=== PATIENT | male | born 1955 | race Caucasian/White ===

== ENCOUNTER 2020-07-30 11:21 | Outpatient (REF) | payer MEDICARE, OTHER, SELFPAY ==
[2020-07-30 13:37] LABS: Prostate Specific Antigen 0.78 ng/mL (<0.05-4.0)
== END 2020-07-30 11:22 | disposition home or self-care (01) ==
LOC: HO.LAB 11:21
PROVIDERS: Visit Provider Urology
DX: Z12.5 Encounter for screening for malignant neoplasm of prostate (principal); N40.1 Benign prostatic hyperplasia with lower urinary tract symptoms; N13.8 Other obstructive and reflux uropathy
CPT/HCPCS: 36415; 84153

== ENCOUNTER → 2020-08-06 13:43 | Outpatient (BNVA) | payer MEDICARE, OTHER, SELFPAY | PROVIDERS: PCP Nurse Practitioner Family; Visit Provider Urology | DX: C61 Malignant neoplasm of prostate (principal); N40.1 Benign prostatic hyperplasia with lower urinary tract symptoms; Z88.4 Allergy status to anesthetic agent; Z88.5 Allergy status to narcotic agent | CPT/HCPCS: 99212 ==

== ENCOUNTER 2020-12-28 | Outpatient (REF) | payer MEDICARE, OTHER, SELFPAY ==
[2020-12-28 13:10] LABS: Appearance Urine CLEAR; Color Urine YELLOW; Glucose Urine UA NEG (NEG); Leukocyte Esterase Urine 2+ (NEG); Nitrite Urine NEG (NEG); Specific Gravity - Urine 1.015 (1.005-1.025); Urine Blood NEG (NEG); Urine Ketones NEG (NEG); Urine Protein NEG (NEG-TRACE)
[2020-12-28 14:11] LABS: WBC Urine 50-75 /HPF (0-4)
[2020-12-28 14:12] LABS: Amorphous Sediment Urine 2+ /LPF; RBC Urine 0 /HPF (0); Squamous Epithelial Cell Urine 1+ /LPF
[2020-12-28 14:13] LABS: Renal Epithelial Cells Urine 1+ /LPF
[2020-12-28 14:15] LABS: Bacteria Urine 1+ /LPF; Mucus Urine 1+ /LPF
== END 2020-12-28 00:01 | disposition home or self-care (01) ==
LOC: HO.LNP
PROVIDERS: Visit Provider Urology
DX: N40.1 Benign prostatic hyperplasia with lower urinary tract symptoms (principal); N13.8 Other obstructive and reflux uropathy
CPT/HCPCS: 81001; 87086; 87088; 87186

== ENCOUNTER 2021-01-28 14:55 | Outpatient (REF) | payer MEDICARE, OTHER, SELFPAY ==
[2021-01-28 15:37] LABS: Blood Urea Nitrogen 9 mg/dL (9-16); Estimated Glomerular Filt Rate > 60
[2021-01-28 16:00] LABS: Prostate Specific Antigen 0.62 ng/mL (<0.05-4.0)
== END 2021-01-28 14:56 | disposition home or self-care (01) ==
LOC: HO.LAB 14:55
PROVIDERS: PCP Nurse Practitioner Family; Visit Provider Urology
DX: C61 Malignant neoplasm of prostate (principal)
CPT/HCPCS: 36415; 82565; 84153; 84520

== ENCOUNTER 2021-01-29 13:38 | Emergency (ER) | payer MEDICARE, OTHER, SELFPAY ==
--- NOTE | ~2021-01-29 | XR_ITS ---
EXAMINATION: XR SHOULDER, LEFT CLINICAL INFORMATION: Left shoulder numbness and pain COMPARISON: June 25, 2020 TECHNIQUE: Three views of the left shoulder. FINDINGS: There is no evidence of acute fracture or dislocation of the left shoulder. Calcific tendinitis is present. There appears to be some superior subluxation of the humeral head at the glenohumeral joint which is suggestive of rotator cuff injury. There is mild spurring of the acromioclavicular joint. No widening of the coracoclavicular space is seen. There is mild spurring at the glenohumeral joint. Status post previous thoracic spine instrumentation. XR/XR shoulder LT min 2V IMPRESSION: Calcific tendinitis of the left shoulder without evidence of acute fracture or dislocation. Secondary signs to suggest rotator cuff tear.
--- NOTE | ~2021-01-29 | CT_ITS ---
EXAMINATION: CT CERVICAL SPINE WITHOUT CONTRAST CLINICAL INFORMATION: Neck pain. No trauma. COMPARISON: 12/03/2016 TECHNIQUE: Contiguous helical images of the cervical spine were obtained without IV contrast. Multiplanar reconstructions were performed. This CT examination was performed using dose optimization techniques as appropriate, variously including the following: *Automated exposure control *Adjustment of mA and/or kV according to patient size (this includes techniques or standardized protocols for targeted exams where dose is matched to indication/reason for exam; i.e. extremities or head) *Use of iterative reconstruction technique DLP: 495 mGy-cm FINDINGS: Anterior fusion hardware in place at C4-C5 and C5-C6 with solid bony fusion of these vertebral bodies. There is anatomic alignment of the vertebral bodies and posterior elements. The atlantoaxial and atlantooccipital articulations are intact. There is disc space narrowing at the remaining levels with vacuum disc phenomenon and endplate osteophytes. Facet arthropathy throughout the cervical spine. Remaining vertebral body heights are maintained and the cervical spine. There is mild anterior wedging appearance of the T2 vertebral body. No evidence of acute fracture. No prevertebral soft tissue swelling. Limited evaluation of the cervical levels on CT. That said, there is clearly significant bony neuroforaminal narrowing on the right at C3-C4. Bilateral C4-C5 and C5-C6 significant bony neuroforaminal narrowing. Mild bony neuroforaminal narrowing at C6-C7 bilaterally. There is no cervical lymphadenopathy. The visualized thyroid gland is unremarkable. The visualized base of the brain is unremarkable. Mild pleural thickening at the lung apices. CT/CT cervical spine wo con IMPRESSION: Moderate degenerative change throughout the cervical spine. Bony fusion of the C4-C6 vertebral bodies. Multilevel diffuse bony neuroforaminal narrowing. MRI may be of use to better evaluate.
--- NOTE | ~2021-01-29 | CT_ITS ---
EXAMINATION: CT HEAD WITHOUT CONTRAST CLINICAL INFORMATION: Left arm numbness and weakness. COMPARISON: None TECHNIQUE: Contiguous axial imaging was performed from the skull base to vertex without intravenous administration of contrast. This CT examination was performed using dose optimization techniques as appropriate, variously including the following: *Automated exposure control *Adjustment of mA and/or kV according to patient size (this includes techniques or standardized protocols for targeted exams where dose is matched to indication/reason for exam; i.e. extremities or head) *Use of iterative reconstruction technique DLP: 635 mGy-cm FINDINGS: There is no evidence of acute intracranial hemorrhage or territorial infarction. No abnormal mass effect or midline shift is seen. [place] to white matter differentiation is well preserved. No extra-axial fluid collections are identified. The ventricles are normal in size. There is no abnormal attenuation within the brain parenchyma. The osseous structures and soft tissues are normal. The mastoid air cells and visualized portions of the paranasal sinuses are well aerated. CT/CT head/brain wo con IMPRESSION: No acute intracranial process seen.
--- NOTE | ~2021-01-29 | MR_ITS ---
EXAMINATION: MR CERVICAL SPINE WITHOUT CONTRAST CLINICAL INFORMATION: Left arm sensory deficits. COMPARISON: Cervical spine CT 12/30/2020. TECHNIQUE: MRI of the cervical spine was performed using routine sequences without contrast. FINDINGS: There are postoperative findings related to anterior cervical discectomy and fusion at C4-C5 and C5-C6. Solid interbody fusion is seen across these levels. There is mild retrolisthesis of C2 on C3 and mild anterolisthesis of C3 on C4, C6 on C7, and C7 on T1. Chronic mild fractures are seen at T2, T3, and T4. Marrow edema is seen within the odontoid process as well as across the right and left C1 lateral masses reflecting degenerative arthropathy across the C1-C2 joints. There is mass effect on the cord at multiple levels, detailed below. Mild amount of intramedullary T2 hyperintensity seen at the C2-C3 and C3-C4 levels presumably edema/myelomalacia. The imaged portions of the intracranial contents and extraspinal soft tissues appear normal. SPINAL LEVELS: C2-C3: Disc osteophyte complex with ligamentum flavum infolding and severe right facet arthropathy with uncovertebral hypertrophy results in severe right and moderate left neural foraminal stenosis and severe spinal canal stenosis with cord compression. C3-C4: Disc osteophyte complex with uncovertebral hypertrophy and severe bilateral facet arthropathy with uncovertebral hypertrophy results in severe spinal canal stenosis, severe bilateral neural foraminal stenosis, cord compression. C4-C5: ACDF. No spinal canal stenosis. Uncovertebral hypertrophy and facet arthropathy contribute to severe bilateral neural foraminal stenosis. C5-C6: ACDF. No spinal canal stenosis. Uncovertebral hypertrophy and facet arthropathy contribute to severe bilateral neural foraminal stenosis. C6-C7: Disc osteophyte complex with ligamentum flavum infolding and combination with uncovertebral hypertrophy and facet arthropathy results in severe spinal canal stenosis, severe bilateral neural foraminal stenosis, and cord compression. C7-T1: Disc osteophyte complex with ligamentum flavum infolding and uncovertebral hypertrophy with severe facet arthropathy combine to cause severe spinal canal stenosis, severe bilateral neural foraminal stenosis, cord compression. Degenerative changes are seen within the upper cervical spine without high-grade spinal canal stenosis. MR/MR cervical spine wo con IMPRESSION: Advanced degenerative spondylotic changes resulting in high-grade spinal canal and neural foraminal stenosis with cord compression seen at C2-C3, C3-C4, C6-C7, and C7-T1. Postoperative findings of ACDF noted from C4 to C6. Significant arthropathy seen at the C1-C2 level. This critical result was discussed with Chuck GARNICA on 01/29/2021 8:06 PM, and it was ascertained that the content and urgency of the report was understood at the time of direct communication.
[2021-01-29 14:07] VITALS: BP 125/69; PULSE 65; RESP 18; TEMP 36.8; O2SAT 98; BMI 23.6
--- NOTE | 2021-01-29 14:28 | ED_ITS ---
HPI - Extremity Problem General Chief complaint: Extremity Injury, Upper Stated complaint: Weakness in left hand Time Seen by Provider: 01/29/21 14:21 Source: patient Mode of arrival: ambulatory Limitations: no limitations History of Present Illness HPI Narrative: 65-year-old male past medical history significant for prostate cancer, hx of spinal cord injury and BPH presents to the emergency department with complaints of left arm and shoulder numbness and slight tingling and a small laceration X3 days. Patient tells me that he woke up on Monday with a numb left arm going from the shoulder to the hand, he tells me from time to time he has slight tingling, expression leave he is moving his arm. He tells me he has not had any trauma to the area, he tells me he does not feel weak. He is able to make a fist with his left hand however he tells me he is unable to fully straighten it. He tells me that he has extensive history of his cervical spine, with a previous operation in 2013 for degenerative disc disease. He also tells me that he has tendinitis and bursitis of the left shoulder and a rotator cuff tear. He tells me has never felt numbness to the left arm before. He does tell me that he has been having neck pain that is worse with movement better at rest over the past few months, but he thought nothing of it. He denies trauma to the area, headache, dizziness, vision changes, changes in urination, changes in bowel habits, shortness of breath, chest pain, nausea, vomiting, abdominal pain. MD Complaint: other (Left arm numbness ) Onset (ago): day(s) (3) Pain Consistency: constant Location: left Severity scale (1-10): 5 Quality: constant Radiation: none Relieving factors: nothing Exacerbating factors: nothing Associated symptoms: other (neck pain ) Related Data Home Medications Medication Instructions Recorded Confirmed baclofen 20 mg tablet 20 mg PO DAILY 08/06/20 omeprazole 20 mg capsule,delayed 20 mg PO DAILY 08/06/20 release tamsulosin 0.4 mg capsule 0.4 mg PO DAILY 08/06/20 Previous Rx's Medication Instructions Recorded sulfamethoxazole 800 1 tab PO BID 5 Days #10 tab 08/06/20 mg-trimethoprim 160 mg tablet (Bactrim DS) nitrofurantoin macrocrystal 50 mg 50 mg PO DAILY 90 Days #90 cap 12/30/20 capsule tetracycline 500 mg capsule 500 mg PO BID 5 Days #10 cap 01/05/21 lidocaine 5 % topical patch 1 patch TOPICAL DAILY PRN #15 ea 01/29/21 methylprednisolone 4 mg tablets in 4 mg PO DAILY #21 ea 01/29/21 a dose pack (Medrol (Mejia)) Allergies Allergy/AdvReac Type Severity Reaction Status Date / Time fentanyl [FENTANYL] Allergy Severe GETS VERY Verified 01/29/21 14:07 ANGRY morphine [MORPHINE] Allergy Severe GETS VERY Verified 01/29/21 14:07 ANGRY Review of Systems Review of Systems: Constitutional : No Weight loss, No Fever, No Chills, No Fatigue, No Malaise ENT/Mouth : No sore throat, No Rhinorrhea Eyes: No Eye Pain, No Swelling, No Redness Cardiovascular : No Chest Pain, No SOB, No Dyspnea on Exertion, No Orthopnea, No Edema, No Palpitations Respiratory : No Cough, No Sputum, No Wheezing Gastrointestinal : No Nausea, No Vomiting, No Diarrhea, No Constipation, No abdominal Pain, No Hematochezia, No Melena Genitourinary : No Dysuria, No Urinary Frequency, No Hematuria, Musculoskeletal : No joint pain, No Myalgias, No Joint Swelling, + neck and sh oulder pain Skin : No Skin Lesions, No rash Neuro : No Weakness, + Numbness/tingling, No Dizziness, No Headache All other systems reviewed and are negative Yes all other systems are reviewed and are negative PMFSH Past Medical History Attestation statement: The following information was validated with the patient. Source: old records reviewed and nursing notes reviewed Medical History (Updated 01/29/21 @ 20:19 by NAHUN Cobian) History of shingles Hx of spinal cord injury Prostate cancer Surgical History History of surgery Social History Social History Advance Directives: No Advance Directives Information Provided: Yes Physical Exam Vital Signs: Vital Signs: Last Vital Signs Temp 98.3 F 01/29/21 14:07 Pulse 61 01/29/21 16:51 Resp 16 01/29/21 16:51 BP 138/59 L 01/29/21 16:51 Pulse Ox 96 01/29/21 16:51 BMI result Body Mass Index 23.6 VSS Appearance: Alert.? Oriented X3.? No acute distress.? Head: Normocephalic, atraumatic, no step-offs or deformities Eyes: Pupils equal, round and reactive to light.? ENT: Pharynx normal.? Neck: Normal inspection.? Neck supple.? CVS: Normal heart rate and rhythm.? Pulses normal.? Respiratory: No respiratory distress.? Breath sounds normal.? Abdomen: Soft and nontender.? Skin: Skin warm and dry.? Normal skin color.? Normal skin turgor.? Extremities: No lower extremity edema.? No calf ttp. 5/5 strength to bilateral upper and lower extremities + Decreased sensation to left arm/ shoulder over dermatome C7 and C5. Patient able to straighten digits 1-3 on left side, but not able to straighten digits 4-5 on left side ( dematome C8). Right arm normal. Capilary refil normal. Able to move all fingers bilaterally. 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 Back: No midline tenderness, no C-spine tenderness, full range of motion, no CVA tenderness bilaterally Neuro: Oriented X 3.? No motor deficit.? + sensory deficit (as described above). Course Reevaluation(s) Reevaluation #1: Based off of results CT and MRI the cervical spine noncontrast will be ordered. I discussed this case with the attending . Patient continues to have sensory deficits to L. arm. unable to fully extend digits 4-5 on left hand. Time: 18:32 Reevaluation #2: Discussed critical results with Dr. David. At this time I will call [facility] Neurosurgery. Time: 20:15 Reevaluation #3: Spoke to Kaylee GARNICA [facility] neuro surgery was also spoken to Oh was the surgeon for patient's cervical surgery who state that patient does not require transfer at this time, patient can be discharged home on a Medrol Mejia, they will request for the office to call patient to schedule an appointment tomorrow. Patient is safe for discharge home with neurosurgery follow-up. They also mention that if patient wants a 2nd opinion he can get a 2nd opinion from a different hospital on whether not he would require surgery. They state that they are willing to discuss the possibility of surgery however it is not on an emergent basis. They think that patient's symptoms are likely from the compression at C7-T1. Comfortable with discharge home with prompt neuro surgical follow-up. Time: 21:22 MDM - Extremity (Nontraumatic) MDM Narrative Medical decision making narrative: 1430 [id number] YO M pmhx BPH, prostate cancer, and spinal cord injury hx presents to the ED w/ left arm/shoulder numbness and tingling X3 days, no recent trauma. Trauma hx in past and has a dignosis of cervical degenerative disc disease with a surgical procedure in 2013. Physical exam significant for decreased sensation to left arm/ shoulder over dermatome C7 and C5. Patient able to straighten digits 1-3 on left side, but not able to straighten digits 4-5 on left side ( dematome C8). Right arm normal. Capilary refil normal. Able to move all fingers bilaterally. 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 No wrist drop. No other neuro deficits. Patient A&O X4. No weakness Based off patient's history and physical exam findings I believe that this is likely a nerve impingement in the cervical spine region, and patient has a history of degenerative disc disease which would support a cervical radiculopathy. I do not suspect that this is a stroke since patient is having no other focal neuro deficits, and is having no weakness, patient is not altered however, a CT of the head/neck has been ordered. Ideally this patient requires an MRI however not on an emergent basis. A CT of the head and neck will be ordered to rule out life-threatening hemorrhages, or strokes although unlikely. An x-ray of the left shoulder will also be ordered to ensure that there is no dislocation, or new changes that could be causing patient to have sensory deficits on the left arm Plan obtain an x-ray of the left shoulder, basic labs, COVID, CT head and cervical spine Lab Data Result diagrams: 01/29/21 16:57 01/29/21 16:57 Labs: Lab Results 01/29/21 01/29/21 01/29/21 Range/Units 16:57 16:57 16:57 WBC 10.4 (4.8-10.8) X10*3/uL RBC 4.34 L (4.60-5.80) X10*6/uL Hgb 13.6 L (14.0-18.0) g/dl Hct 40.0 L (42.0-52.0) % MCV 92.2 (80.0-98.0) fL MCH 31.3 (27.0-33.0) pg MCHC 34.0 (31.0-36.0) g/dl RDW 11.9 (11.0-16.0) % Plt Count 230 (160-400) X10*3/uL MPV 10.4 (9.4-12.4) fL Immature Gran % (Auto) 0.5 H (0.0-0.4) % Neut % (Auto) 75.9 H (45-73) % Lymph % (Auto) 15.2 L (20-40) % [place] % (Auto) 6.3 (2-11) % Eos % (Auto) 1.8 (0-4) % Baso % (Auto) 0.3 (0-2) % Lymph # (Auto) 1.6 (1.2-4.9) X10*3/uL [place] # (Auto) 0.7 (0.1-1.2) X10*3/uL Eos # (Auto) 0.2 (0.0-0.4) X10*3/uL Baso # (Auto) 0.0 (0.0-0.2) X10*3/uL Abs Immat Gran (auto) 0.05 H (0.00-0.03) X10*3/uL Absolute Neuts (auto) 7.9 (2.0-8.3) x10*3/uL Absolute Nucleated RBC 0.000 (0.0-0.012) X10*3/uL Nucleated RBC % (auto) 0.0 (0.0-0.2) /100WBC Sodium 140 (135-145) mmol/L Potassium 4.2 (3.3-5.1) mmol/L Chloride 105 (96-108) mmol/L Carbon Dioxide 30 H (22-29) mmol/L Anion Gap 9 L (12-20) BUN 9 (9-16) mg/dL Creatinine 0.75 (0.5-1.4) mg/dL Estim Creat Clear Calc 95.5 Estimated GFR > 60 Random Glucose 89 (60-115) mg/dL Calcium 9.4 (8.4-10.2) mg/dL Magnesium 2.0 (1.6-2.6) mg/dL Total Bilirubin 0.7 (0.0-1.0) mg/dL AST 24 (5-37) U/L ALT 29 (0-40) U/L Alkaline Phosphatase 64 (39-117) U/L Total Protein 6.5 (6.5-8.0) g/dL Albumin 3.9 (3.5-5.0) g/dL COVID-19 (HOWARD) Negative (Negative) COVID-19 Clin Com See Note Imaging Data left shoulder: Attestation: I personally reviewed and interpreted this imaging study as follows: Radiologist's impression: XR/XR shoulder LT min 2V IMPRESSION: Calcific tendinitis of the left shoulder without evidence of acute fracture or dislocation. Secondary signs to suggest rotator cuff tear. CT scan - head: Attestation: I personally reviewed and interpreted this imaging study as follows: Radiologist's impression: FINDINGS: There is no evidence of acute intracranial hemorrhage or territorial infarction. No abnormal mass effect or midline shift is seen. [place] to white matter differentiation is well preserved. No extra-axial fluid collections are identified. The ventricles are normal in size. There is no abnormal attenuation within the brain parenchyma. The osseous structures and soft tissues are normal. The mastoid air cells and visualized portions of the paranasal sinuses are well aerated. ? CT/CT head/brain wo con IMPRESSION: No acute intracranial process seen. CT neck : Attestation: I personally reviewed and interpreted this imaging study as follows: My impression: Moderate degenerative change throughout the cervical spine. Bony fusion of the C4-C6 vertebral bodies. Multilevel diffuse bony neuroforaminal narrowing. MRI may be of use to better evaluate Critical Care Time Critical Care Time Critical Care Time: Yes Total Critical Care Time: 60 Attestation: I attest to this time spent taking care of the patient, reviewing labs, imaging, looking into patient's past medical history, physical examination, history taken, speaking to Radiology, speaking to [facility], for transfer. Discharge Plan Discharge Clinical Impression: Calcific tendinitis of left shoulder, Rotator cuff tear, Cervical radiculopathy due to degenerative joint disease of spine, Cervical spinal cord compression Patient Disposition: Home, Self-Care Instructions: Rotator Cuff Tendinitis (ED), Calcific Tendinitis (ED), Cervical Radiculopathy (ED), Rotator Cuff Tear Repair (DC) Additional Instructions: Take your medications as prescribed. If you were prescribed antibiotics today, it is important that you take your medication to their entirety, do not skip any doses, do not finish them early. Follow up with neuro surgery they will call you to make an appointment Return to the emergency department with new or worsening symptoms. Such as fevers, chills, chest pain, shortness of breath, weakness, confusion, bowel or urine incontinence, sensory deficits elsewhere. In case of emergency call 911 Prescriptions: New lidocaine 5 % adhesive patch,medicated 1 patch topical DAILY PRN (Reason: pain) Qty: 15 RF: 0 methylprednisolone [Medrol (Mejia)] 4 mg tablets,dose pack 4 mg PO DAILY Qty: 21 RF: 0 No Action nitrofurantoin macrocrystal 50 mg capsule 50 mg PO DAILY 90 Days Qty: 90 RF: 3 tetracycline 500 mg capsule 500 mg PO BID 5 Days Qty: 10 RF: 0 sulfamethoxazole-trimethoprim [Bactrim DS] 800-160 mg tablet 1 tab PO BID 5 Days Qty: 10 RF: 1 Referrals: Meghana Dorantes NP [Primary Care Provider] - 2 days Stand Alone Forms: Work/School Release
[2021-01-29] MEDS: oxyCODONE HCl Immed Release 5 MG TABLET 10 MG PO (16:45)
[2021-01-29 16:51] VITALS: BP 138/59; PULSE 61; RESP 16; O2SAT 96
[2021-01-29 17:01] LABS: MANUAL DIFF FLAG NO
[2021-01-29 17:02] LABS: Basophils Percent Auto 0.3 % (0-2); Eosinophils Absolute Auto 0.2 X10*3/uL (0.0-0.4); Eosinophils Percent Auto 1.8 % (0-4); Hemoglobin 13.6 g/dl (14.0-18.0); Imm Gran Abs Auto 0.05 X10*3/uL (0.00-0.03); Imm Gran Pct Auto 0.5 % (0.0-0.4); Lymphocytes Absolute Auto 1.6 X10*3/uL (1.2-4.9); Lymphocytes Percent Auto 15.2 % (20-40); Mean Corpuscular Hemoglobin 31.3 pg (27.0-33.0); Mean Corpuscular Volume 92.2 fL (80.0-98.0); Mean Platelet Volume 10.4 fL (9.4-12.4); Monocytes Absolute Auto 0.7 X10*3/uL (0.1-1.2); Monocytes Percent Auto 6.3 % (2-11); Neutrophils Absolute Auto 7.9 x10*3/uL (2.0-8.3); Neutrophils Percent Auto 75.9 % (45-73); Platelet Count 230 X10*3/uL (160-400); Red Blood Count 4.34 X10*6/uL (4.60-5.80); Red Cell Distribution Width 11.9 % (11.0-16.0); White Blood Count 10.4 X10*3/uL (4.8-10.8)
[2021-01-29 17:23] LABS: Alanine Aminotransferase 29 U/L (0-40); Albumin Level 3.9 g/dL (3.5-5.0); Alkaline Phosphatase 64 U/L (39-117); Anion Gap 9 (12-20); Aspartate Amino Transferase 24 U/L (5-37); Bilirubin Total 0.7 mg/dL (0.0-1.0); Blood Urea Nitrogen 9 mg/dL (9-16); Calcium 9.4 mg/dL (8.4-10.2); Carbon Dioxide 30 mmol/L (22-29); Chloride 105 mmol/L (96-108); Creatinine Clr Calc Pharmacy 95.5; Estimated Glomerular Filt Rate > 60; Glucose Random 89 mg/dL (60-115); Potassium 4.2 mmol/L (3.3-5.1); Sodium 140 mmol/L (135-145); Total Protein 6.5 g/dL (6.5-8.0)
[2021-01-29 17:37] LABS: COVID-19 Test Negative (Negative)
--- NOTE | 2021-01-29 20:12 | PC.NURSE ---
call out to [facility] neuro [facility], spoke with transfer center who also spoke with PA
== END 2021-01-29 21:32 | disposition home or self-care (01) ==
PROVIDERS: Physician Assistant; Emergency Provider Emergency Medicine; PCP Nurse Practitioner Family
DX: M75.102 Unspecified rotator cuff tear or rupture of left shoulder, not specified as traumatic (principal); M54.12 Radiculopathy, cervical region; M47.892 Other spondylosis, cervical region; M79.602 Pain in left arm; R51.9 Headache, unspecified; Z20.822 Contact with and (suspected) exposure to COVID-19; Z79.899 Other long term (current) drug therapy
CPT/HCPCS: 36415; 70450; 72125; 72141; 73030; 80053; 83735; 85025; 87635; 99283; 99291

== ENCOUNTER 2021-02-01 12:09 | Outpatient (REF) | payer MEDICARE, OTHER, SELFPAY ==
[2021-02-01 17:08] LABS: Appearance Urine HAZY; Color Urine YELLOW; Glucose Urine UA NEG (NEG); Leukocyte Esterase Urine 3+ (NEG); Nitrite Urine POS (NEG); PH 7.5 (5.0-8.0); Urine Blood NEG (NEG); Urine Ketones NEG (NEG); Urine Protein NEG (NEG-TRACE)
[2021-02-01 18:13] LABS: Bacteria Urine 3+ /LPF
[2021-02-01 18:14] LABS: RBC Urine 0 /HPF (0)
== END 2021-02-01 12:10 | disposition home or self-care (01) ==
LOC: HO.LAB 12:09
PROVIDERS: Visit Provider Urology
DX: N40.1 Benign prostatic hyperplasia with lower urinary tract symptoms (principal); N13.8 Other obstructive and reflux uropathy
CPT/HCPCS: 81001; 87086; 87088; 87186

== ENCOUNTER 2021-02-04 10:18 | Outpatient (REF) | payer MEDICARE, OTHER, SELFPAY | END 2021-02-04 10:19 | disposition home or self-care (01) | LOC: HO.LNP 10:18 | PROVIDERS: PCP Nurse Practitioner Family; Visit Provider Urology | DX: N39.0 Urinary tract infection, site not specified (principal); C61 Malignant neoplasm of prostate | CPT/HCPCS: 87086; 99212 ==

== ENCOUNTER 2021-06-22 13:36 | Outpatient (REF) | payer MEDICARE, SELFPAY ==
[2021-06-22 14:21] LABS: Appearance Urine CLEAR; Color Urine YELLOW; Glucose Urine UA NEG (NEG); Leukocyte Esterase Urine TRACE (NEG); Nitrite Urine NEG (NEG); PH 6.5 (5.0-8.0); Specific Gravity - Urine 1.015 (1.005-1.025); Urine Blood NEG (NEG); Urine Ketones NEG (NEG); Urine Protein NEG (NEG-TRACE)
[2021-06-22 14:40] LABS: RBC Urine 0-2 /HPF (0); WBC Urine 0-2 /HPF (0-4)
== END 2021-06-22 13:37 | disposition home or self-care (01) ==
LOC: HO.LNP 13:36
PROVIDERS: Visit Provider Urology
DX: N39.0 Urinary tract infection, site not specified (principal)
CPT/HCPCS: 81001; 87086

== ENCOUNTER 2021-07-29 13:52 | Outpatient (REF) | payer MEDICARE, SELFPAY ==
[2021-07-29 15:21] LABS: Prostate Specific Antigen 0.45 ng/mL (<0.05-4.0)
== END 2021-07-29 13:53 | disposition home or self-care (01) ==
LOC: HO.LAB 13:52
PROVIDERS: PCP Nurse Practitioner Family; Visit Provider Urology
DX: Z12.5 Encounter for screening for malignant neoplasm of prostate (principal); N40.1 Benign prostatic hyperplasia with lower urinary tract symptoms; N13.8 Other obstructive and reflux uropathy
CPT/HCPCS: 36415; 84153

== ENCOUNTER 2021-07-30 13:38 | Outpatient (REF) | payer MEDICARE, SELFPAY ==
[2021-07-30 13:47] LABS: Appearance Urine HAZY; Color Urine YELLOW; Glucose Urine UA NEG (NEG); Leukocyte Esterase Urine NEG (NEG); Nitrite Urine NEG (NEG); Urine Blood NEG (NEG); Urine Ketones NEG (NEG); Urine Protein NEG (NEG-TRACE)
[2021-07-30 13:56] LABS: Amorphous Sediment Urine 2+ /LPF; RBC Urine 0 /HPF (0); Squamous Epithelial Cell Urine 1+ /LPF; WBC Urine 0 /HPF (0-4)
== END 2021-07-30 13:39 | disposition home or self-care (01) ==
LOC: HO.LNP 13:38
PROVIDERS: Visit Provider Urology
DX: N39.0 Urinary tract infection, site not specified (principal)
CPT/HCPCS: 81001

== ENCOUNTER → 2021-08-05 10:54 | Outpatient (BNVA) | payer MEDICARE, SELFPAY | PROVIDERS: PCP Nurse Practitioner Family; Visit Provider Urology | DX: N39.0 Urinary tract infection, site not specified (principal); C61 Malignant neoplasm of prostate | CPT/HCPCS: Q3014 ==

== ENCOUNTER 2021-12-27 13:40 | Outpatient (REF) | payer MEDICARE, SELFPAY ==
[2021-12-27 17:40] LABS: Appearance Urine Clear; Color Urine Yellow; Glucose Urine UA Negative (Negative); Leukocyte Esterase Urine Small (1+) (Negative); Nitrite Urine Negative (Negative); UMIC TRIGGER UA YES; Urine Blood Negative (Negative); Urine Ketones Negative (Negative); Urine Protein Negative (Neg-Trace)
[2021-12-27 19:00] LABS: RBC Urine 0-2 /HPF (0-2); Squamous Epithelial Cell Urine 0-2 /HPF (0-2)
[2021-12-27 19:01] LABS: Bacteria Urine None Seen (None Seen); Hyaline Casts Urine 0-2 /LPF (0-2)
== END 2021-12-27 13:41 | disposition home or self-care (01) ==
LOC: HO.LAB 13:40
PROVIDERS: Visit Provider Urology
DX: N39.0 Urinary tract infection, site not specified (principal)
CPT/HCPCS: 81001; 87086

== ENCOUNTER 2022-01-28 12:28 | Outpatient (REF) | payer MEDICARE, SELFPAY ==
[2022-01-28 14:20] LABS: Prostate Specific Antigen 1.19 ng/mL (<0.05-4.0)
== END 2022-01-28 12:29 | disposition home or self-care (01) ==
LOC: HO.LAB 12:28
PROVIDERS: PCP Nurse Practitioner Family; Visit Provider Urology
DX: Z12.5 Encounter for screening for malignant neoplasm of prostate (principal); N13.8 Other obstructive and reflux uropathy; N40.1 Benign prostatic hyperplasia with lower urinary tract symptoms
CPT/HCPCS: 36415; 84153

== ENCOUNTER → 2022-02-04 08:43 | Outpatient (BNVA) | payer MEDICARE, SELFPAY | PROVIDERS: PCP Nurse Practitioner Family; Visit Provider Urology | DX: N40.1 Benign prostatic hyperplasia with lower urinary tract symptoms (principal); N13.8 Other obstructive and reflux uropathy; N39.0 Urinary tract infection, site not specified; C61 Malignant neoplasm of prostate | CPT/HCPCS: Q3014 ==

== ENCOUNTER 2022-02-19 10:10 | Outpatient (REF) | payer MEDICARE, SELFPAY ==
[2022-02-19 11:21] LABS: Appearance Urine Clear; Color Urine Yellow; Glucose Urine UA Negative (Negative); Leukocyte Esterase Urine Negative (Negative); Nitrite Urine Negative (Negative); PH 6.5 (5.0-9.0); Urine Blood Negative (Negative); Urine Ketones Negative (Negative); Urine Protein Negative (Neg-Trace)
[2022-02-19 11:24] LABS: Bacteria Urine None Seen (None Seen); Hyaline Casts Urine 0-2 /LPF (0-2); RBC Urine 0-2 /HPF (0-2); Squamous Epithelial Cell Urine 0-2 /HPF (0-2); WBC Urine 0-5 /HPF (0-5)
== END 2022-02-19 10:11 | disposition home or self-care (01) ==
LOC: HO.HMGCLDS 10:10
PROVIDERS: PCP Nurse Practitioner Family; Visit Provider Urology
DX: N39.0 Urinary tract infection, site not specified (principal)
CPT/HCPCS: 81001; 87086

== ENCOUNTER 2022-04-15 14:36 | Outpatient (REF) | payer MEDICARE, SELFPAY ==
[2022-04-15 15:02] LABS: Appearance Urine Clear; Color Urine Yellow; Glucose Urine UA Negative (Negative); Leukocyte Esterase Urine Small (1+) (Negative); Nitrite Urine Negative (Negative); PH 8.5 (5.0-9.0); UMIC TRIGGER UA YES; Urine Blood Negative (Negative); Urine Ketones Negative (Negative); Urine Protein Negative (Neg-Trace)
[2022-04-15 15:08] LABS: Bacteria Urine 2+ (None Seen); Hyaline Casts Urine 0-2 /LPF (0-2); RBC Urine 0-2 /HPF (0-2); Squamous Epithelial Cell Urine 0-2 /HPF (0-2)
== END 2022-04-15 14:37 | disposition home or self-care (01) ==
LOC: HO.LNP 14:36
PROVIDERS: Visit Provider Urology
DX: N39.0 Urinary tract infection, site not specified (principal)
CPT/HCPCS: 81001; 87086; 87088; 87186

== ENCOUNTER 2022-10-01 01:30 | Emergency (ER) | payer MEDICARE, OTHER, SELFPAY ==
[2022-10-01 01:39] VITALS: BP 117/55; BP 144/70; PULSE 100; PULSE 94; RESP 13; TEMP 37.6; O2SAT 95; O2SAT 99; BMI 24.0
[2022-10-01 01:50] LABS: MANUAL DIFF FLAG NO
[2022-10-01 01:51] LABS: Basophils Percent Auto 0.3 % (0-2); Eosinophils Percent Auto 0.2 % (0-4); Hematocrit 37.5 % (42.0-52.0); Hemoglobin 13.1 g/dl (14.0-18.0); Imm Gran Abs Auto 0.07 X10*3/uL (0.00-0.03); Imm Gran Pct Auto 0.5 % (0.0-0.4); Lymphocytes Absolute Auto 0.8 X10*3/uL (1.2-4.9); Lymphocytes Percent Auto 5.2 % (20-40); Mean Corpuscular HGB Conc 34.9 g/dl (31.0-36.0); Mean Corpuscular Volume 91.7 fL (80.0-98.0); Mean Platelet Volume 10.8 fL (9.4-12.4); Monocytes Absolute Auto 0.9 X10*3/uL (0.1-1.2); Monocytes Percent Auto 6.4 % (2-11); Neutrophils Absolute Auto 12.7 x10*3/uL (2.0-8.3); Neutrophils Percent Auto 87.4 % (45-73); Platelet Count 179 X10*3/uL (160-400); Red Blood Count 4.09 X10*6/uL (4.60-5.80); Red Cell Distribution Width 11.9 % (11.0-16.0); White Blood Count 14.5 X10*3/uL (4.8-10.8)
[2022-10-01 02:02] LABS: Anion Gap 13 (12-20); Blood Urea Nitrogen 13 mg/dL (9-16); Calcium 9.4 mg/dL (8.4-10.2); Carbon Dioxide 24 mmol/L (22-29); Chloride 103 mmol/L (96-108); Creatinine Clr Calc Pharmacy 89.9; Estimated Glomerular Filt Rate > 60; Glucose Random 128 mg/dL (60-115); Potassium 3.9 mmol/L (3.3-5.1); Sodium 136 mmol/L (135-145)
--- NOTE | 2022-10-01 02:22 | ED_ITS ---
HPI - General Adult General Chief complaint: General Medical Stated complaint: Fever Time Seen by Provider: 10/01/22 02:21 Source: patient Mode of arrival: ambulatory Limitations: no limitations History of Present Illness HPI narrative: Patient with spinal cord injury since 1994 with BPH with frequent UTIs secondary to unable to empty his bladder completely comes here for shivering chills and 101 fever for last 6 hours feels same as when he gets UTI, and Onfi nausea no vomiting no back pain no hematuria Related Data Home Medications Medication Instructions Recorded Confirmed baclofen 20 mg tablet 20 mg PO DAILY 08/06/20 omeprazole 20 mg capsule,delayed 20 mg PO DAILY 08/06/20 release tamsulosin 0.4 mg capsule 0.4 mg PO DAILY 08/06/20 celecoxib 200 mg capsule mg PO BID 02/04/22 duloxetine 30 mg capsule,delayed 30 mg PO DAILY 02/04/22 release fluticasone propionate 50 0 mcg intranasal 02/04/22 mcg/actuation nasal spray,suspension oxycodone 10 mg tablet 10 mg PO QID PRN 02/04/22 Previous Rx's Medication Instructions Recorded nitrofurantoin macrocrystal 50 mg 50 mg PO DAILY 90 days #90 caps 12/30/20 capsule lidocaine 5 % topical patch 1 patch topical DAILY PRN pain #15 01/29/21 ea methylprednisolone 4 mg tablets in 4 mg PO DAILY #21 ea 01/29/21 a dose pack (Medrol (Mejia)) ondansetron 8 mg disintegrating 8 mg PO Q12H PRN nausea and 06/01/21 tablet vomiting 5 days #10 tabs sulfamethoxazole 400 1 tab PO DAILY UTI suppression 30 02/18/22 mg-trimethoprim 80 mg tablet days #30 tabs (Bactrim) sulfamethoxazole 800 1 tab PO BID 7 days #14 tabs 08/10/22 mg-trimethoprim 160 mg tablet (Bactrim DS) cefuroxime axetil 250 mg tablet 250 mg PO BID 10 days #20 tabs 10/01/22 Allergies Allergy/AdvReac Type Severity Reaction Status Date / Time fentanyl [FENTANYL] Allergy Severe GETS VERY Verified 02/04/22 08:44 ANGRY morphine [MORPHINE] Allergy Severe GETS VERY Verified 02/04/22 08:44 ANGRY levofloxacin Allergy Intermediate Blister Uncoded 05/02/22 15:44 Review of Systems Review of Systems: Yes all other systems are reviewed and are negative PMFSH Past Medical History Medical History History of shingles Hx of spinal cord injury Prostate cancer Surgical History History of surgery Social History Social History Alcohol intake: never Smoked in Last 30 Days: No Use of substances other than those prescribed or required for medical reasons: No Advance Directives: No Advance Directives Information Provided: No Physical Exam ED Vital Signs: Vital Signs - 24 hr 10/01/22 01:39 10/01/22 02:56 10/01/22 05:25 Temperature 99.6 F 101.9 F H 101.1 F H Pulse Rate 94 89 89 Respiratory Rate 13 12 16 Blood Pressure 117/55 L 126/62 143/65 H Pulse Oximetry 95 93 98 Oxygen Delivery Method Room Air Room Air 10/01/22 05:59 Temperature 98.6 F Pulse Rate 95 Respiratory Rate 17 Blood Pressure 153/75 H Pulse Oximetry 98 Oxygen Delivery Method Room Air BMI result Body Mass Index 24.0 Appearance: Alert. Oriented X3. No acute distress. Eyes: PERRLA, No Nystagmus ENT: Pharynx normal. Oral Mucosa moist Neck: Normal inspection. Neck supple. CVS: Normal heart rate and rhythm. Pulses normal. Respiratory: No respiratory distress. Equal air entry bilateral, no wheezing/rales/rhonchi Abdomen: Soft and nontender. Bowel sounds are present, no mass palpable, no CVA tenderness Skin: Skin warm and dry. Normal skin color. Normal skin turgor. Extremities: No lower extremity edema. No calf tenderness Neuro: Oriented X 3. paraparesis Medications Administered Discontinued Medications Generic Name Dose Route Start Last Admin Trade Name Freq PRN Reason Stop Dose Admin Acetaminophen 650 mg 10/01/22 05:24 10/01/22 05:59 Acetaminophen 325 Mg Tablet PO 10/01/22 05:25 650 mg ONCE ONE Administration Ceftriaxone Sodium 1 gm/ 50 mls @ 100 mls/hr 10/01/22 02:24 10/01/22 03:28 Sodium Chloride IV 10/01/22 02:53 Infused ONCE ONE Infusion Sodium Chloride 1,000 mls @ 999 mls/hr 10/01/22 02:24 10/01/22 04:04 Ns IV 10/01/22 03:24 Infused .Q1H1M ONE Infusion Ketorolac Tromethamine 30 mg 10/01/22 05:24 10/01/22 05:58 Ketorolac Tromethamine 30 Mg/Ml Vial IVPUSH 10/01/22 05:25 30 mg ONCE ONE Administration Medical Decision Making Medical Decision Making MDM Narrative: Patient with frequent UTI previous urine showed providencia sensitive to cephalosporin in the ER patient spiked temperature to 101.9 improved after Toradol for discharge patient received Rocephin IV and feeling much better discharge patient home on Ceftin Lab Data [facility] Lab Attestation statement: I reviewed the patient's lab results. 10/01/22 01:46 10/01/22 01:46 Labs: Lab Results 10/01/22 10/01/22 10/01/22 Range/Units 01:46 01:46 02:48 WBC 14.5 H (4.8-10.8) X10*3/uL RBC 4.09 L (4.60-5.80) X10*6/uL Hgb 13.1 L (14.0-18.0) g/dl Hct 37.5 L (42.0-52.0) % MCV 91.7 (80.0-98.0) fL MCH 32.0 (27.0-33.0) pg MCHC 34.9 (31.0-36.0) g/dl RDW 11.9 (11.0-16.0) % Plt Count 179 (160-400) X10*3/uL MPV 10.8 (9.4-12.4) fL Immature Gran % (Auto) 0.5 H (0.0-0.4) % Neut % (Auto) 87.4 H (45-73) % Lymph % (Auto) 5.2 L (20-40) % [place] % (Auto) 6.4 (2-11) % Eos % (Auto) 0.2 (0-4) % Baso % (Auto) 0.3 (0-2) % Lymph # (Auto) 0.8 L (1.2-4.9) X10*3/uL [place] # (Auto) 0.9 (0.1-1.2) X10*3/uL Eos # (Auto) 0.0 (0.0-0.4) X10*3/uL Baso # (Auto) 0.0 (0.0-0.2) X10*3/uL Abs Immat Gran (auto) 0.07 H (0.00-0.03) X10*3/uL Absolute Neuts (auto) 12.7 H (2.0-8.3) x10*3/uL Absolute Nucleated RBC 0.000 (0.0-0.012) X10*3/uL Nucleated RBC % (auto) 0.0 (0.0-0.2) /100WBC Sodium 136 (135-145) mmol/L Potassium 3.9 (3.3-5.1) mmol/L Chloride 103 (96-108) mmol/L Carbon Dioxide 24 (22-29) mmol/L Anion Gap 13 (12-20) BUN 13 (9-16) mg/dL Creatinine 0.75 (0.5-1.4) mg/dL Estim Creat Clear Calc 89.9 Estimated GFR > 60 Random Glucose 128 H (60-115) mg/dL Lactic Acid 1.2 (0.5-2.0) mmol/L Calcium 9.4 (8.4-10.2) mg/dL Urine Color Urine Appearance Urine pH (5.0-9.0) Ur Specific Newberry (1.005-1.025) Urine Protein (Neg-Trace) mg/dL Urine Glucose (UA) (Negative) mg/dL Urine Ketones (Negative) mg/dL Urine Blood (Negative) Urine Nitrite (Negative) Ur Leukocyte Esterase (Negative) Urine RBC (0-2) /HPF Urine WBC (0-5) /HPF Ur Squamous Epith Cells (0-2) /HPF Urine Bacteria (None Seen) Hyaline Casts (0-2) /LPF COVID-19 (HOWARD) (Negative) COVID-19 Clin Com 10/01/22 10/01/22 Range/Units 02:59 03:58 WBC (4.8-10.8) X10*3/uL RBC (4.60-5.80) X10*6/uL Hgb (14.0-18.0) g/dl Hct (42.0-52.0) % MCV (80.0-98.0) fL MCH (27.0-33.0) pg MCHC (31.0-36.0) g/dl RDW (11.0-16.0) % Plt Count (160-400) X10*3/uL MPV (9.4-12.4) fL Immature Gran % (Auto) (0.0-0.4) % Neut % (Auto) (45-73) % Lymph % (Auto) (20-40) % [place] % (Auto) (2-11) % Eos % (Auto) (0-4) % Baso % (Auto) (0-2) % Lymph # (Auto) (1.2-4.9) X10*3/uL [place] # (Auto) (0.1-1.2) X10*3/uL Eos # (Auto) (0.0-0.4) X10*3/uL Baso # (Auto) (0.0-0.2) X10*3/uL Abs Immat Gran (auto) (0.00-0.03) X10*3/uL Absolute Neuts (auto) (2.0-8.3) x10*3/uL Absolute Nucleated RBC (0.0-0.012) X10*3/uL Nucleated RBC % (auto) (0.0-0.2) /100WBC Sodium (135-145) mmol/L Potassium (3.3-5.1) mmol/L Chloride (96-108) mmol/L Carbon Dioxide (22-29) mmol/L Anion Gap (12-20) BUN (9-16) mg/dL Creatinine (0.5-1.4) mg/dL Estim Creat Clear Calc Estimated GFR Random Glucose (60-115) mg/dL Lactic Acid (0.5-2.0) mmol/L Calcium (8.4-10.2) mg/dL Urine Color Yellow Urine Appearance Clear Urine pH 7.0 (5.0-9.0) Ur Specific Newberry 1.015 (1.005-1.025) Urine Protein Trace (Neg-Trace) mg/dL Urine Glucose (UA) Negative (Negative) mg/dL Urine Ketones Negative (Negative) mg/dL Urine Blood Negative (Negative) Urine Nitrite Positive H (Negative) Ur Leukocyte Esterase Moderate (2+) H (Negative) Urine RBC 0-2 (0-2) /HPF Urine WBC >50 H (0-5) /HPF Ur Squamous Epith Cells 0-2 (0-2) /HPF Urine Bacteria 4+ (None Seen) Hyaline Casts 3-5 (0-2) /LPF COVID-19 (HOWARD) Negative (Negative) COVID-19 Clin Com See Note Discharge Plan Discharge Clinical Impression: Recurrent UTI (urinary tract infection) Patient Disposition: Home, Self-Care Instructions: Urinary Tract Infection in Men (ED) Additional Instructions: Drink plenty of fluids Try to Urinate frequently Antibiotics as prescribed Report to the ER if high fever /not feeling good Follow-up with urology for possible bladder stimulator Prescriptions: New cefuroxime axetil 250 mg tablet 250 mg PO BID 10 Days Qty: 20 0RF No Action nitrofurantoin macrocrystal 50 mg capsule 50 mg PO DAILY 90 Days Qty: 90 3RF Rx Instructions: must administer with a meal/food ondansetron 8 mg tablet,disintegrating 8 mg PO Q12H PRN (Reason: nausea and vomiting) 5 Days Qty: 10 0RF sulfamethoxazole-trimethoprim [Bactrim] 400-80 mg tablet 1 tab PO DAILY 30 Days Qty: 30 6RF sulfamethoxazole-trimethoprim [Bactrim DS] 800-160 mg tablet 1 tab PO BID 7 Days Qty: 14 0RF lidocaine 5 % adhesive patch,medicated 1 patch topical DAILY PRN (Reason: pain) Qty: 15 0RF Rx Instructions: leave on most painful area for up to 12 hrs methylprednisolone [Medrol (Mejia)] 4 mg tablets,dose pack 4 mg PO DAILY Qty: 21 0RF omeprazole 20 mg capsule,delayed release(DR/EC) 20 mg PO DAILY baclofen 20 mg tablet 20 mg PO DAILY tamsulosin 0.4 mg capsule 0.4 mg PO DAILY oxycodone 10 mg tablet 10 mg PO QID PRN fluticasone propionate 50 mcg/actuation spray,suspension 0 mcg intranasal celecoxib 200 mg capsule PO BID duloxetine 30 mg capsule,delayed release(DR/EC) 30 mg PO DAILY Referrals: Herrera Doshi MD [Physician] - 2 weeks
[2022-10-01] MEDS: 0.9 % Sodium Chloride 1,000 ML 999 ML IV (02:53)
[2022-10-01] MEDS: cefTRIAXone sodium 1 GM in 0.9 % Sodium Chloride 50 ML IV (02:53)
[2022-10-01 02:56] VITALS: BP 126/62; PULSE 89; RESP 12; TEMP 38.8; O2SAT 93
[2022-10-01 03:04] LABS: Lactic Acid 1.2 mmol/L (0.5-2.0)
--- NOTE | 2022-10-01 03:04 | PC.NURSE ---
pt labs sent down, abx and fluids hanging at this time
[2022-10-01 03:05] LABS: Appearance Urine Clear; Color Urine Yellow; Glucose Urine UA Negative (Negative); Leukocyte Esterase Urine Moderate (2+) (Negative); Nitrite Urine Positive (Negative); Specific Gravity - Urine 1.015 (1.005-1.025); UMIC TRIGGER UACC YES; Urine Blood Negative (Negative); Urine Ketones Negative (Negative); Urine Protein Trace mg/dL (Neg-Trace)
[2022-10-01 03:07] LABS: Bacteria Urine 4+ (None Seen); RBC Urine 0-2 /HPF (0-2); Squamous Epithelial Cell Urine 0-2 /HPF (0-2); UACC Culture Trigger YES; WBC Urine >50 /HPF (0-5)
[2022-10-01 04:16] LABS: COVID-19 Test Negative (Negative); IDNOW Serial# 6674DD1D
[2022-10-01 05:25] VITALS: BP 143/65; PULSE 89; RESP 16; TEMP 38.4; O2SAT 98
[2022-10-01] MEDS: Ketorolac Tromethamine 30 MG/ML VIAL IVPUSH (05:58)
[2022-10-01 05:59] VITALS: BP 153/75; PULSE 95; RESP 17; TEMP 37; O2SAT 98
[2022-10-01] MEDS: Acetaminophen 325 MG TABLET 650 MG PO (05:59)
[2022-10-01] MEDS: bisacodyL 5 MG TABLET.DR 10 MG PO (06:52)
[2022-10-01] MEDS: Milk of Magnesia 30 ML ORAL.SUSP PO (06:54)
[2022-10-01] MEDS: Ibuprofen 600 MG TABLET PO (07:17)
[2022-10-01 07:19] VITALS: BP 124/64; PULSE 89; RESP 15; TEMP 37.6; O2SAT 93
[2022-10-01 07:46] VITALS: BP 109/57; PULSE 82; RESP 16; TEMP 36.9; O2SAT 95
== END 2022-10-01 07:53 | disposition home or self-care (01) ==
PROVIDERS: Emergency Provider Internal Medicine; PCP Nurse Practitioner Family
DX: N39.0 Urinary tract infection, site not specified (principal); B96.20 Unspecified Escherichia coli [E. coli] as the cause of diseases classified elsewhere; R50.9 Fever, unspecified; Z20.822 Contact with and (suspected) exposure to COVID-19; Z87.440 Personal history of urinary (tract) infections
CPT/HCPCS: 36415; 80048; 81001; 83605; 85025; 87040; 87086; 87088; 87186; 87635; 96361; 96365; 96375; 99284; J0696; J1885

== ENCOUNTER 2022-11-09 10:54 | Outpatient (REF) | payer MEDICARE, SELFPAY | END 2022-11-09 10:55 | disposition home or self-care (01) | LOC: HO.10HDL 10:54 | PROVIDERS: Visit Provider Urology | DX: Z12.5 Encounter for screening for malignant neoplasm of prostate (principal); C61 Malignant neoplasm of prostate | CPT/HCPCS: 36415; 84153 ==

== ENCOUNTER 2022-11-23 11:45 | Outpatient (AMB) | payer MEDICARE, SELFPAY ==
--- NOTE | 2022-11-23 11:57 | MHC.OFFVIS ---
Intake Intake Visit Reasons: 6 month psa(set) Intake Note: Patient is Present for Follow Up PSA/PVR Urology Medication: Tamsulosin Antibiotic Allergies: Levofloxacin Blood Thinners: None Pharmacy: [facility] PVR:0 Allergies fentanyl [FENTANYL] Allergy (Severe, Verified 11/23/22 11:58) GETS VERY ANGRY morphine [MORPHINE] Allergy (Severe, Verified 11/23/22 11:58) GETS VERY ANGRY cefuroxime Allergy (Severe, Uncoded 11/23/22 11:58) Rash levofloxacin Allergy (Intermediate, Uncoded 11/23/22 11:58) Blister HPI HPI Comments History of Present Illness Details Tony is a pleasant male.? He is a patient of Dr. Dorantes.? He is seen for the following urologic issue. - prostate cancer - recurring UTI Did have nasty infection it took 3 times to treat On suppression Bactrim PSA remains low Prostate cancer Diagnosed with Dr. Ryena 2017 Pathology diagnosis April 6 02/24 cores 5% Initial therapy active surveillance PSA - 08/03 0.78, 02/02 0.62, 08/04 0.5, 02/03 1.2, 11/05 0.8 Recurring UTI Prior severe back injury Baseline tamsulosin Remains on suppression with Bactrim alone Upset stomach with Macrobid Urine culture - 01/03 Staphylococcus resistant to Bactrim sensitive to Macrobid and tetracycline - 02/02 providencia - sensitive to Bactrim resistant to Macrobid - 10/05 E coli Levaquin, Bactrim resistant PFSH Medical History History of shingles Hx of spinal cord injury Prostate cancer Surgical History History of surgery Social History Alcohol intake: never Review of Systems Const Denies chills and Denies fever(s) Card Reports no additional complaints and Denies syncope Resp Denies cough GI Denies abdominal pain and Denies heartburn Reports as per HPI and Denies change in libido Neuro Denies syncope Psych Denies change in libido Endo Denies change in libido Physical Exam Const General: cooperative, healthy appearing, comfortable and no acute distress Orientation/consciousness: patient oriented x3 HEENT Face and sinus: Yes normal facial exam Mouth: moist mucous membranes Neck Neck: Yes normal visual inspection, Yes full ROM and Yes trachea midline Chest Chest palpation & inspection: normal inspection of the chest Resp Effort & Inspection: normal respiratory effort, able to speak in complete sentences and no respiratory distress GI Inspection: Yes normal to inspection Back/Spine/Pelvis Cervical Spine: normal cervical lordosis Thoracic/Lumbar Spine: thoracic and lumbar spine normal to inspection Skin General skin exam: no rashes or lesions noted Neuro General: patient oriented x3, gait normal, tone normal and moves all extremities Extrem General: Yes normal to inspection and Yes capillary refill normal Office Procedures Post Void Residual Post Residual Void Post Void Residual (PVR): 0 [id number] Void Residual by ultrasound Results AMB Urinalysis, Automated UA Leukoctes 0 Miguel Ángel/uL Last Edit by Nilda Fisher [facility] on 11/23/22 12:21 UA Nitrite Negative Last Edit by Nilda Fisher [facility] on 11/23/22 12:21 UA Urobilinogen 0.2 mg/dL Last Edit by Nilda Fisher [facility] on 11/23/22 12:21 UA Protein 0 mg/dL Last Edit by Nilda Fisher [facility] on 11/23/22 12:21 UA pH 7 Last Edit by Nilda Fisher [facility] on 11/23/22 12:21 UA Blood 0 Dexter/uL Last Edit by Nilda Fisher [facility] on 11/23/22 12:21 UA Specific Onward 1.010 Last Edit by Nilda Fisher Rg on 11/23/22 12:21 UA Ketone Negative Last Edit by Nilda Fisher [facility] on 11/23/22 12:21 UA Bilirubin 0 mg/dL Last Edit by Nilda Fisher [facility] on 11/23/22 12:21 UA Glucose 0 mg/dL Last Edit by Nilda Fisher [facility] on 11/23/22 12:21 Results Reviewed Results Reviewed: Laboratory Last Values Urine pH (Auto) 7 11/23/22 11:59 Specific Onward (Auto) 1.010 11/23/22 11:59 Urine Protein (Auto) 0 mg/dL 11/23/22 11:59 Glucose (UA)(Auto) 0 mg/dL 11/23/22 11:59 Urine Ketones (Auto) Negative 11/23/22 11:59 Urine Blood (Auto) 0 Dexter/uL 11/23/22 11:59 Urine Nitrite (Auto) Negative 11/23/22 11:59 Urine Bilirubin (Auto) 0 mg/dL 11/23/22 11:59 Urine Urobilinogen (Auto) 0.2 mg/dL 11/23/22 11:59 Leukocyte Esterase (Auto) 0 Miguel Ángel/uL 11/23/22 11:59 Assessment & Plan Assessment & Plan (1) Prostate cancer: Code(s): C61 - Malignant neoplasm of prostate (2) Recurrent UTI (urinary tract infection): Code(s): N39.0 - Urinary tract infection, site not specified Plan Remain on suppression Orders: Orders AMB Urinalysis Automated 11/23/22 Z13.9 - Encounter for screening, unspecified AMB Post Void Residual by ultrasound 11/23/22 N13.8 - Other obstructive and reflux uropathy, N40.1 - Benign prostatic hyperplasia with lower urinary tract symptoms Medications: Changed From sulfamethoxazole-trimethoprim 400-80 mg 1 tab PO DAILY 30 days 30 tabs 1RF UTI suppression To sulfamethoxazole-trimethoprim 400-80 mg (Bactrim) 1 tab PO DAILY 90 tabs 1RF UTI suppression 90 days Patient Instructions: Imaging studies, laboratory and physical exam results were discussed and reviewed in detail. No major barriers to patient understanding were identified. An opportunity to ask questions regarding the treatment plan was provided. All questions were answered. The patient expressed understanding and agreement with the above treatment plan. The patient is aware they should contact our office by phone for worsening of their current condition or the appearance of new urologic symptoms. Compliance is encouraged with any medications and followup testing that is ordered. It is a privilege to participate in the urologic care of your patient. If you have any questions or concerns regarding treatment for the above conditions, or other urologic issues, please do not hesitate to contact me. The office telephone contact is [phone]. This note is constructed using voice recognition software. While every effort has been made to ensure accuracy law firm consultant errors may have been included. Yours sincerely, Dr Herrera Doshi MD, [facility] - Urology Providers of Expert, Compassionate Care for the Genitourinary System Coding Level of Care Code Est Pt Level 3 (15541) Diagnoses Prostate cancer C61 Recurrent UTI (urinary tract infection) N39.0 CPT Codes Post Residual Void - PVR CPT Code: 54692-Lksd Void Residual by ultrasound ([id number])
== END 2022-11-23 13:10 | disposition home or self-care (01) ==
PROVIDERS: PCP Nurse Practitioner Family; Visit Provider Urology
DX: C61 Malignant neoplasm of prostate (principal); N39.0 Urinary tract infection, site not specified
CPT/HCPCS: 99213

== ENCOUNTER → 2022-11-23 11:45 | Outpatient (BNVA) | payer MEDICARE, SELFPAY | PROVIDERS: Visit Provider Urology | DX: C61 Malignant neoplasm of prostate (principal); N40.1 Benign prostatic hyperplasia with lower urinary tract symptoms; N13.8 Other obstructive and reflux uropathy; N39.0 Urinary tract infection, site not specified; Z79.899 Other long term (current) drug therapy | CPT/HCPCS: 51798; 81003; 99212 ==

== ENCOUNTER 2022-12-19 19:35 | Outpatient (REF) | payer MEDICARE, SELFPAY ==
[2022-12-20 13:23] LABS: Appearance Urine Clear; Color Urine Yellow; Glucose Urine UA Negative (Negative); Leukocyte Esterase Urine Negative (Negative); Nitrite Urine Negative (Negative); Urine Blood Negative (Negative); Urine Ketones Negative (Negative); Urine Protein Negative (Neg-Trace)
[2022-12-20 13:27] LABS: Bacteria Urine None Seen (None Seen); Hyaline Casts Urine 0-2 /LPF (0-2); RBC Urine 0-2 /HPF (0-2); Squamous Epithelial Cell Urine 0-2 /HPF (0-2); WBC Urine 0-5 /HPF (0-5)
== END 2022-12-19 19:36 | disposition home or self-care (01) ==
LOC: HO.10HDLNP 19:35
PROVIDERS: Visit Provider Urology
DX: N39.0 Urinary tract infection, site not specified (principal)
CPT/HCPCS: 81001; 87086

== ENCOUNTER 2022-12-31 02:15 | Inpatient (IN) | payer MEDICARE, SELFPAY ==
[2022-12-31] VITALS (9 sets, daily range): BP systolic 100–143; BP diastolic 49–70; PULSE 63–117; RESP 12–21; TEMP 36.9–39.3; O2SAT 93–98; BMI 23.6
--- NOTE | 2022-12-31 | ECG_ITS ---
Test Reason : SEPSIS Blood Pressure : / mmHG Vent. Rate : 106 BPM Atrial Rate : 106 BPM P-R Int : 198 ms QRS Dur : 090 ms QT Int : 326 ms P-R-T Axes : 058 061 071 degrees QTc Int : 433 ms Sinus tachycardia RSR' or QR pattern in V1 suggests right ventricular conduction delay Borderline ECG When compared with ECG of 25-MAY-2016 02:23, Vent. rate has increased BY 38 BPM Referred By: Generic ED Physician Electronically Signed By:LEANN LAST MD
[2022-12-31 03:02] LABS: MANUAL DIFF FLAG NO
[2022-12-31 03:03] LABS: Basophils Percent Auto 0.2 % (0-2); Eosinophils Percent Auto 0.3 % (0-4); Hematocrit 39.3 % (42.0-52.0); Hemoglobin 13.6 g/dl (14.0-18.0); Imm Gran Abs Auto 0.09 X10*3/uL (0.00-0.03); Imm Gran Pct Auto 0.6 % (0.0-0.4); Lymphocytes Absolute Auto 0.9 X10*3/uL (1.2-4.9); Lymphocytes Percent Auto 5.7 % (20-40); Mean Corpuscular HGB Conc 34.6 g/dl (31.0-36.0); Mean Corpuscular Hemoglobin 31.3 pg (27.0-33.0); Mean Corpuscular Volume 90.6 fL (80.0-98.0); Mean Platelet Volume 10.6 fL (9.4-12.4); Monocytes Absolute Auto 0.9 X10*3/uL (0.1-1.2); Neutrophils Absolute Auto 13.2 x10*3/uL (2.0-8.3); Neutrophils Percent Auto 87.2 % (45-73); Platelet Count 187 X10*3/uL (160-400); Red Blood Count 4.34 X10*6/uL (4.60-5.80); Red Cell Distribution Width 11.9 % (11.0-16.0); White Blood Count 15.1 X10*3/uL (4.8-10.8)
--- NOTE | 2022-12-31 03:09 | MHC.EDTECH ---
Patient was biba from home ,Vitals taken ,pt was hooked up to pvc monitor ,ekg taken and was read by Provider ,blood drawn including both sets of blood culture and lactic acid ,rsv/covid swab collected all sent to lab ,Pt was change into hospital gown ,PRESTON Bowser is aware of Pt high temp ,high heart rate and low blood Pressure ,Pt at bedside ,Call bowden within Pt reach .
[2022-12-31] MEDS: cefTRIAXone sodium 1 GM in 0.9 % Sodium Chloride 50 ML IV ×2 (03:15→21:09)
[2022-12-31] MEDS: 0.9 % Sodium Chloride 2,500 ML 833.33 ML IV (03:15)
[2022-12-31] MEDS: ondansetron HCL 4 MG/2 ML VIAL IVPUSH ×3 (03:15→23:25)
[2022-12-31] MEDS: Acetaminophen 325 MG TABLET 650 MG PO (03:15)
[2022-12-31 03:16] LABS: Lactic Acid 0.9 mmol/L (0.5-2.0)
[2022-12-31 03:19] LABS: Anion Gap 11 (12-20); Blood Urea Nitrogen 11 mg/dL (9-16); Carbon Dioxide 30 mmol/L (22-29); Chloride 99 mmol/L (96-108); Creatinine Clr Calc Pharmacy 93.6; Estimated Glomerular Filt Rate > 60; Glucose Random 103 mg/dL (60-115); Potassium 3.5 mmol/L (3.3-5.1); Sodium 136 mmol/L (135-145)
[2022-12-31 03:32] LABS: Appearance Urine Clear; Color Urine Yellow; Glucose Urine UA Negative (Negative); Leukocyte Esterase Urine Moderate (2+) (Negative); Nitrite Urine Negative (Negative); UMIC TRIGGER UACC YES; Urine Blood Negative (Negative); Urine Ketones Negative (Negative); Urine Protein Negative (Neg-Trace)
[2022-12-31 03:35] LABS: Bacteria Urine 4+ (None Seen); Hyaline Casts Urine 0-2 /LPF (0-2); Squamous Epithelial Cell Urine 0-2 /HPF (0-2); UACC Culture Trigger YES; WBC Urine >50 /HPF (0-5)
--- NOTE | 2022-12-31 03:39 | PC.NURSE ---
Patient BIBA from home to be evaluated for fever, generalized body aches, nausea, mild discomfort in suprapubic area, occasional dysuria, and fever. Patient has history of frequent UTI's, monitored by Dr. Doshi. Patient on prophylactic dose Bactrim. \Patient is febrile, T 102.8 rectal, tachycardic 108-120, BP's 120-130/72-79. EMS placed 20 G IV in L AC. This RN inserted 20 G IV line in R AC, labs drawn, urine specimen collected-urine and blood specimen dent to lab for precessing. Patient medicated per APR. Patient's spouse at bedside, call bowden within patient's reach.
[2022-12-31 03:40] LABS: Influenza A PCR NEGATIVE (Negative); Influenza B PCR NEGATIVE (Negative); Resp Syncy Virus RNA Qual PCR NEGATIVE (Negative); SARS COV2 PCR INHOUSE NEGATIVE (Negative)
--- NOTE | 2022-12-31 03:42 | ED_ITS ---
HPI - Male Genitourinary General Chief complaint: Urogenital-Male Stated complaint: sepsis? Time Seen by Provider: 12/31/22 03:06 Source: patient Mode of arrival: EMS Limitations: no limitations History of Present Illness HPI Narrative: Patient status post T11 spinal cord injury 9095 with frequent UTI unable to empty his bladder completely last infection was in 10/01/2022 today just prior to arrival patient while in the bed started having shaking chills and discomfort in the bladder assisted with nausea no vomiting no back pain patient's symptoms similar to that when he gets UTI patient used to be on nitrofurantoin in the past for prophylaxis but changed to Bactrim daily by urologist had previous urine culture showed E coli which is resistant to Bactrim on arrival patient temperature was 102.8 degrees Related Data Home Medications Medication Instructions Recorded Confirmed baclofen 20 mg tablet 20 mg PO DAILY 08/06/20 12/31/22 omeprazole 20 mg capsule,delayed 20 mg PO DAILY 08/06/20 12/31/22 release tamsulosin 0.4 mg capsule 0.4 mg PO DAILY 08/06/20 12/31/22 celecoxib 200 mg capsule 200 mg PO BID 02/04/22 12/31/22 oxycodone 10 mg tablet 10 mg PO QID PRN Pain (Scale Score 02/04/22 12/31/22 4-6) fluoxetine 20 mg capsule 20 mg PO DAILY 12/31/22 12/31/22 Previous Rx's Medication Instructions Recorded sulfamethoxazole 400 1 tab PO DAILY UTI suppression 90 11/23/22 mg-trimethoprim 80 mg tablet days #90 tabs (Bactrim) oxybutynin chloride 5 mg 5 mg PO DAILY 30 days #30 tabs 12/21/22 tablet,extended release 24 hr Allergies Allergy/AdvReac Type Severity Reaction Status Date / Time fentanyl [FENTANYL] Allergy Severe GETS VERY Verified 11/23/22 11:58 ANGRY morphine [MORPHINE] Allergy Severe GETS VERY Verified 11/23/22 11:58 ANGRY cefuroxime Allergy Severe Rash Uncoded 11/23/22 11:58 levofloxacin Allergy Intermediate Blister Uncoded 11/23/22 11:58 Review of Systems 2 Review of Systems: Yes all other systems are reviewed and are negative PMFSH Past Medical History Medical History (Updated 12/31/22 @ 04:25 by Elias Drew MD) History of shingles Hx of spinal cord injury Prostate cancer Surgical History History of surgery Social History Social History Alcohol intake: former Smoked in Last 30 Days: No Use of substances other than those prescribed or required for medical reasons: No Advance Directives: No Advance Directives Information Provided: Yes Physical Exam 2 Vital Signs: Vital Signs: Last Vital Signs Temp 99.4 F 12/31/22 03:52 Pulse 117 H 12/31/22 03:52 Resp 21 H 12/31/22 03:52 BP 133/64 12/31/22 03:52 Pulse Ox 97 12/31/22 03:52 O2 Del Method Room Air 12/31/22 03:52 BMI result Body Mass Index 23.6 Appearance: Alert. Oriented X3. No acute distress. Eyes: No pallor or icterus ENT: Pharynx normal. Oral Mucosa moist Neck: Normal inspection. Neck supple. CVS: Normal heart rate and rhythm. Pulses normal. Respiratory: No respiratory distress. Equal air entry bilateral, no wheezing/rales/rhonchi Abdomen: Soft and nontender. Bowel sounds are present, no mass palpable, no CVA tenderness Skin: Skin warm and dry. Normal skin color. Normal skin turgor. Extremities: No lower extremity edema. No calf tenderness Neuro: Oriented X 3. paraparesis+. No sensory deficit.No cerebellar signs , cranial nerves II-XII intact Medications Administered Generic Name Dose Route Start Last Admin Trade Name Freq PRN Reason Stop Dose Admin Sodium Chloride 2,500 mls @ 833.3333 mls/hr 12/31/22 03:07 12/31/22 03:15 Ns IV 12/31/22 06:06 833.33 mls/hr .Q3H STA Administration Discontinued Medications Generic Name Dose Route Start Last Admin Trade Name Freq PRN Reason Stop Dose Admin Acetaminophen 650 mg 12/31/22 03:07 12/31/22 03:15 Acetaminophen 325 Mg Tablet PO 12/31/22 03:08 650 mg ONCE ONE Administration Ceftriaxone Sodium 1 gm/ 50 mls @ 100 mls/hr 12/31/22 03:07 12/31/22 03:46 Sodium Chloride IV 12/31/22 03:36 Infused ONCE ONE Infusion Ondansetron HCl 4 mg 12/31/22 03:07 12/31/22 03:15 Ondansetron Hcl 4 Mg/2 Ml Vial IVPUSH 12/31/22 03:08 4 mg ONCE ONE Administration Oxycodone HCl 10 mg 12/31/22 04:22 12/31/22 04:25 Oxycodone Hcl Immed Release 5 Mg Tablet PO 12/31/22 04:23 10 mg ONCE ONE Administration Medical Decision Making Medical Decision Making [facility] Narrative: Patient with UTI with sepsis not in septic shock received IV fluids IV antibiotics will admit patient for IV antibiotics r/o pyelonephritis Differential Diagnosis Differential Diagnoses: The differential diagnosis associated with the presentation includes UTI/sepsis/bacteremia/pyelonephritis Admission/Observation Consideration of admission/observation: Escalation of care including admission/observation considered Consult Healthcare Provider Management of the patient was discussed with: Hospitalist Lab Data [facility] Lab Attestation statement: I reviewed the patient's lab results. 12/31/22 02:50 12/31/22 02:50 Labs: Lab Results 12/31/22 12/31/22 12/31/22 Range/Units 02:50 02:51 03:26 WBC 15.1 H (4.8-10.8) X10*3/uL RBC 4.34 L (4.60-5.80) X10*6/uL Hgb 13.6 L (14.0-18.0) g/dl Hct 39.3 L (42.0-52.0) % MCV 90.6 (80.0-98.0) fL MCH 31.3 (27.0-33.0) pg MCHC 34.6 (31.0-36.0) g/dl RDW 11.9 (11.0-16.0) % Plt Count 187 (160-400) X10*3/uL MPV 10.6 (9.4-12.4) fL Immature Gran % (Auto) 0.6 H (0.0-0.4) % Neut % (Auto) 87.2 H (45-73) % Lymph % (Auto) 5.7 L (20-40) % [place] % (Auto) 6.0 (2-11) % Eos % (Auto) 0.3 (0-4) % Baso % (Auto) 0.2 (0-2) % Lymph # (Auto) 0.9 L (1.2-4.9) X10*3/uL [place] # (Auto) 0.9 (0.1-1.2) X10*3/uL Eos # (Auto) 0.0 (0.0-0.4) X10*3/uL Baso # (Auto) 0.0 (0.0-0.2) X10*3/uL Abs Immat Gran (auto) 0.09 H (0.00-0.03) X10*3/uL Absolute Neuts (auto) 13.2 H (2.0-8.3) x10*3/uL Absolute Nucleated RBC 0.000 (0.0-0.012) X10*3/uL Nucleated RBC % (auto) 0.0 (0.0-0.2) /100WBC Sodium 136 (135-145) mmol/L Potassium 3.5 (3.3-5.1) mmol/L Chloride 99 (96-108) mmol/L Carbon Dioxide 30 H (22-29) mmol/L Anion Gap 11 L (12-20) BUN 11 (9-16) mg/dL Creatinine 0.72 (0.5-1.4) mg/dL Estim Creat Clear Calc 93.6 Estimated GFR > 60 Random Glucose 103 (60-115) mg/dL Lactic Acid 0.9 (0.5-2.0) mmol/L Calcium 9.0 (8.4-10.2) mg/dL Urine Color Yellow Urine Appearance Clear Urine pH 8.0 (5.0-9.0) Ur Specific [place] 1.010 (1.005-1.025) Urine Protein Negative (Neg-Trace) mg/dL Urine Glucose (UA) Negative (Negative) mg/dL Urine Ketones Negative (Negative) mg/dL Urine Blood Negative (Negative) Urine Nitrite Negative (Negative) Ur Leukocyte Esterase Moderate (2+) H (Negative) Urine RBC 3-5 H (0-2) /HPF Urine WBC >50 H (0-5) /HPF Ur Squamous Epith Cells 0-2 (0-2) /HPF Urine Bacteria 4+ (None Seen) Hyaline Casts 0-2 (0-2) /LPF Influenza Type A (PCR) NEGATIVE (Negative) Influenza Type B (PCR) NEGATIVE (Negative) RSV RNA Qual (PCR) NEGATIVE (Negative) SARS-CoV-2 RNA (RT-PCR) NEGATIVE (Negative) Discharge Plan Discharge Clinical Impression: Urinary tract infection, Sepsis Patient Disposition: Admitted As Inpatient
--- NOTE | 2022-12-31 04:01 | P.HPHOSP_ITS ---
History of Present Illness Date of Service: 12/31/22 Chief Complaint: Fevers and chills This is a 67-year-old male with pertinent history of BPH, prostate cancer, mood disorder, GERD, history of spinal cord injury who presents to the emergency department for evaluation of fevers and chills. Patient states he has a history of UTI. He started having fevers and chills on the day of presentation. His temperature was 103 degrees at home and he decided to present to the ER. Patient states he is feeling unwell. Has suprapubic discomfort and increased urinary frequency. He was previously on daily nitrofurantoin which was subsequently changed to daily Bactrim for prophylaxis of UTI. No chest discomfort, palpitations, shortness of breath, changes in bowel habits. He uses 2 canes for ambulation. In the emergency department, patient was found to be septic and urine concerning for UTI. Review of Systems 2 Constitutional: Constitutional: Reports chills, Reports fatigue, Reports fever(s) and Reports lethargy Cardiovascular: Cardiovascular: Reports no additional cardiovascular complaints Respiratory: Respiratory: Reports no additional respiratory complaints Gastrointestinal: Gastrointestinal: Reports abdominal pain Genitourinary: Genitourinary: Reports urinary frequency Endocrine: Endocrine: Reports fatigue PMFSH Medical History History of shingles Hx of spinal cord injury Prostate cancer Pertinent family history: No family history of early CAD Surgical History History of surgery Social History Alcohol intake: former Patient Tobacco Use Status: Former Tobacco user Smoked in Last 30 Days: No Use of substances other than those prescribed or required for medical reasons: No Advance Directives: No Advance Directives Information Provided: Yes Nutrition Risks: No Nutritional Risk Meds Allergies Allergy/AdvReac Type Severity Reaction Status Date / Time fentanyl [FENTANYL] Allergy Severe GETS VERY Verified 11/23/22 11:58 ANGRY morphine [MORPHINE] Allergy Severe GETS VERY Verified 11/23/22 11:58 ANGRY cefuroxime Allergy Severe Rash Uncoded 11/23/22 11:58 levofloxacin Allergy Intermediate Blister Uncoded 11/23/22 11:58 Active Medications: Current Medications Sodium Chloride (Ns) 2,500 mls @ 833.3333 mls/hr IV .Q3H STA Stop: 12/31/22 06:06 Last Admin: 12/31/22 03:15 Dose: 833.33 mls/hr Home Medications Medication Instructions Recorded Confirmed Last Taken Type baclofen 20 mg tablet 20 mg PO DAILY 08/06/20 12/31/22 Unknown History omeprazole 20 mg capsule,delayed 20 mg PO DAILY 08/06/20 12/31/22 Unknown History release tamsulosin 0.4 mg capsule 0.4 mg PO DAILY 08/06/20 12/31/22 Unknown History celecoxib 200 mg capsule 200 mg PO BID 02/04/22 12/31/22 Unknown History oxycodone 10 mg tablet 10 mg PO QID PRN Pain (Scale Score 02/04/22 12/31/22 Unknown History 4-6) fluoxetine 20 mg capsule 20 mg PO DAILY 12/31/22 12/31/22 Unknown History Physical Exam 2 Vital Signs and Narrative: Vital Signs: Last Vital Signs Temp 99.4 F 12/31/22 03:52 Pulse 117 H 12/31/22 03:52 Resp 21 H 12/31/22 03:52 BP 133/64 12/31/22 03:52 Pulse Ox 97 12/31/22 03:52 O2 Del Method Room Air 12/31/22 03:52 BMI result Body Mass Index 23.6 Middle-aged male lying in bed in no distress Neck supple, no JVD Tachycardic with regular rhythm, S1-S2 heard Regular breath sounds bilaterally, no wheezing or crackles appreciated Abdomen soft nontender, no guarding, no rigidity Patient is awake, alert and oriented to self, place, time and person ; paraparesis + Psych: Normal mood No pedal edema Results Labs 12/31/22 02:50 12/31/22 02:50 Labs: Laboratory Results - last 24 hr 12/31/22 12/31/22 12/31/22 02:50 02:51 03:26 MCV 90.6 MCH 31.3 MCHC 34.6 RDW 11.9 Plt Count 187 MPV 10.6 Immature Gran % (Auto) 0.6 H Neut % (Auto) 87.2 H Lymph % (Auto) 5.7 L [place] % (Auto) 6.0 Eos % (Auto) 0.3 Baso % (Auto) 0.2 Lymph # (Auto) 0.9 L [place] # (Auto) 0.9 Eos # (Auto) 0.0 Baso # (Auto) 0.0 Abs Immat Gran (auto) 0.09 H Absolute Neuts (auto) 13.2 H Absolute Nucleated RBC 0.000 Nucleated RBC % (auto) 0.0 Anion Gap 11 L Estim Creat Clear Calc 93.6 Estimated GFR > 60 Random Glucose 103 Lactic Acid 0.9 Calcium 9.0 Urine Color Yellow Urine Appearance Clear Urine pH 8.0 Ur Specific [place] 1.010 Urine Protein Negative Urine Glucose (UA) Negative Urine Ketones Negative Urine Blood Negative Urine Nitrite Negative Ur Leukocyte Esterase Moderate (2+) H Urine RBC 3-5 H Urine WBC >50 H Ur Squamous Epith Cells 0-2 Urine Bacteria 4+ Hyaline Casts 0-2 Influenza Type A (PCR) NEGATIVE Influenza Type B (PCR) NEGATIVE RSV RNA Qual (PCR) NEGATIVE SARS-CoV-2 RNA (RT-PCR) NEGATIVE Assessment and Plan (1) Sepsis: Status: Acute (2) Urinary tract infection: Status: Acute Plan This is a 67-year-old male with pertinent history of BPH, prostate cancer, mood disorder, GERD, history of spinal cord injury who presents to the emergency department for evaluation of fevers and chills. #. Sepsis due to acute UTI: Reviewed previous urine culture, resistant to Bactrim. Resuscitated with IV crystalloids. Initiating empiric IV antibiotics. Lactic acid and blood culture obtained. Urine culture pending #. History of spinal cord injury: Paraparesis present. Continue home baclofen and p.r.n. opioids #. BPH: On Flomax and oxybutynin #. Mood disorder: On fluoxetine #. Gastroesophageal reflux disease: On PPI DVT prophylaxis: Lovenox Admit as inpatient and will require two night minimum hospital stay for IV antibiotics (as above), which is not possible in a lesser acute setting. Quality Stroke Does the patient have a stroke diagnosis?: No VTE Prior VTE?: No VTE Risk Level:: Medical - moderate - high VTE Device Contraindication: Treatment Not Indicated VTE Drug Contraindication: N/A - Med Ordered
[2022-12-31] MEDS: oxyCODONE HCl Immed Release 5 MG TABLET 10 MG PO ×4 (04:25→23:21)
--- NOTE | 2022-12-31 04:54 | PC.NURSE ---
Temp 99.1 oral, P 99, BP 112/69, O2 Sat 97% RA. Patient medicated with Oxycodone 10 mg PO for chronic generalized pain/stiffness. Dr. Vito mortensen bedside for admission assessment. Medication reconciliation completed. Patient's spouse at bedside, call bowden in patient's reach.
[2022-12-31 05:51] LABS: MANUAL DIFF FLAG NO
[2022-12-31 05:54] LABS: Basophils Absolute Auto 0.1 X10*3/uL (0.0-0.2); Basophils Percent Auto 0.3 % (0-2); Eosinophils Percent Auto 0.1 % (0-4); Hematocrit 36.6 % (42.0-52.0); Hemoglobin 12.7 g/dl (14.0-18.0); Imm Gran Abs Auto 0.17 X10*3/uL (0.00-0.03); Lymphocytes Absolute Auto 0.8 X10*3/uL (1.2-4.9); Lymphocytes Percent Auto 4.5 % (20-40); Mean Corpuscular HGB Conc 34.7 g/dl (31.0-36.0); Mean Corpuscular Hemoglobin 32.1 pg (27.0-33.0); Mean Corpuscular Volume 92.4 fL (80.0-98.0); Mean Platelet Volume 11.1 fL (9.4-12.4); Monocytes Absolute Auto 1.4 X10*3/uL (0.1-1.2); Monocytes Percent Auto 7.9 % (2-11); Neutrophils Absolute Auto 15.1 x10*3/uL (2.0-8.3); Neutrophils Percent Auto 86.2 % (45-73); Platelet Count 177 X10*3/uL (160-400); Red Blood Count 3.96 X10*6/uL (4.60-5.80); Red Cell Distribution Width 11.9 % (11.0-16.0); White Blood Count 17.4 X10*3/uL (4.8-10.8)
[2022-12-31] MEDS: Enoxaparin Sodium 40 MG/0.4 ML SYRINGE SUBCUT (05:56)
[2022-12-31 06:07] LABS: Anion Gap 9 (12-20); Blood Urea Nitrogen 9 mg/dL (9-16); Calcium 8.4 mg/dL (8.4-10.2); Carbon Dioxide 25 mmol/L (22-29); Chloride 106 mmol/L (96-108); Creatinine Clr Calc Pharmacy 100.6; Estimated Glomerular Filt Rate > 60; Glucose Random 116 mg/dL (60-115); Potassium 3.5 mmol/L (3.3-5.1); Sodium 136 mmol/L (135-145)
--- NOTE | 2022-12-31 07:46 | PHA.MEDREC ---
Pharmacy Consult ? Medication Reconciliation Pharmacy has completed the medication reconciliation. Spoke to patient to confirm meds.
[2022-12-31] MEDS: Omeprazole 20 MG CAPSULE.DR PO (08:14)
[2022-12-31] MEDS: FLUoxetine HCl 20 MG CAPSULE PO (08:14)
[2022-12-31] MEDS: Tamsulosin HCL 0.4 MG CAPSULE PO (08:14)
[2022-12-31] MEDS: oxyBUTYnin chloride ER 5 MG TAB.ER.24 PO ×2 (08:14→23:21)
[2022-12-31] MEDS: Baclofen 20 MG TABLET PO ×2 (08:14→17:54)
[2022-12-31] MEDS: 0.9 % Sodium Chloride Flush 3 ML SYRINGE IVFLUSH ×3 (08:15→21:11)
--- NOTE | 2022-12-31 08:41 | PC.NURSE ---
Alert and oriented, medicated with home meds and prn oxycodone. VSs, at bedside
[2022-12-31] MEDS: Celecoxib 200 MG CAPSULE PO ×2 (10:00→21:09)
--- NOTE | 2022-12-31 10:03 | PC.NURSE ---
Patient reports pain has improved, vss
--- NOTE | 2022-12-31 11:47 | PC.NURSE ---
Report called to accepting unit, patient aware
[2022-12-31] MEDS: Baclofen 10 MG TABLET 30 MG PO ×2 (12:40→23:20)
[2022-12-31] MEDS: rOPINIRole HCL 0.25 MG TABLET 0.75 MG PO (13:32)
[2022-12-31] MEDS: Cholecalciferol (Vitamin D3) 25 MCG TABLET PO (17:54)
[2023-01-01 04:00] VITALS: BP 129/60; PULSE 53; RESP 17; TEMP 36.7; O2SAT 94
[2023-01-01 05:35] LABS: Hematocrit 36.3 % (42.0-52.0); Hemoglobin 12.3 g/dl (14.0-18.0); Mean Corpuscular HGB Conc 33.9 g/dl (31.0-36.0); Mean Corpuscular Hemoglobin 32.1 pg (27.0-33.0); Mean Corpuscular Volume 94.8 fL (80.0-98.0); Mean Platelet Volume 11.2 fL (9.4-12.4); Platelet Count 166 X10*3/uL (160-400); Red Blood Count 3.83 X10*6/uL (4.60-5.80); Red Cell Distribution Width 12.2 % (11.0-16.0); White Blood Count 13.8 X10*3/uL (4.8-10.8)
[2023-01-01 05:46] LABS: Anion Gap 10 (12-20); Blood Urea Nitrogen 9 mg/dL (9-16); Calcium 8.9 mg/dL (8.4-10.2); Carbon Dioxide 28 mmol/L (22-29); Chloride 104 mmol/L (96-108); Creatinine Clr Calc Pharmacy 96.3; Estimated Glomerular Filt Rate > 60; Glucose Random 95 mg/dL (60-115); Potassium 3.9 mmol/L (3.3-5.1); Sodium 138 mmol/L (135-145)
[2023-01-01] MEDS: oxyCODONE HCl Immed Release 5 MG TABLET 10 MG PO ×3 (06:10→18:05)
[2023-01-01] MEDS: Enoxaparin Sodium 40 MG/0.4 ML SYRINGE SUBCUT (06:10)
[2023-01-01] MEDS: Baclofen 20 MG TABLET PO ×2 (06:10→17:28)
[2023-01-01 07:04] VITALS: BP 127/62; PULSE 59; RESP 18; TEMP 36.9; O2SAT 94
[2023-01-01] MEDS: Omeprazole 20 MG CAPSULE.DR PO (07:56)
[2023-01-01] MEDS: 0.9 % Sodium Chloride Flush 3 ML SYRINGE IVFLUSH ×3 (07:57→21:15)
[2023-01-01] MEDS: Celecoxib 200 MG CAPSULE PO ×2 (07:57→21:13)
[2023-01-01] MEDS: FLUoxetine HCl 20 MG CAPSULE PO (07:57)
--- NOTE | 2023-01-01 09:02 | HO.PM.IMPN ---
Subjective Subjective Date of Service: 01/01/23 Interval History: sepsis sec to uti Review of Systems has some suprapubic discomfort, no fever chills Physical Exam Vital Signs: Vital Signs: Last Vital Signs Temp 98.4 F 01/01/23 07:04 Pulse 59 01/01/23 07:04 Resp 18 01/01/23 07:04 BP 127/62 01/01/23 07:04 Pulse Ox 94 01/01/23 07:04 O2 Del Method Room Air 01/01/23 07:04 BMI result Body Mass Index 23.6 Middle-aged male lying in bed in no distress chest: regular rhythm, S1-S2 heard. Regular breath sounds bilaterally, no wheezing or crackles appreciated Abdomen soft nontender, no guarding, no rigidity Patient is awake, alert and oriented to self, place, time and person Psych: Normal mood No pedal edema Objective Data Active Medications Acetaminophen (Acetaminophen 325 Mg Tablet) 650 mg PO Q6H PRN PRN Reason: Pain, Mild (Pain Scale 1-3) Baclofen (Baclofen 10 Mg Tablet) 30 mg PO BID@1200,0000 [facility] Last Admin: 12/31/22 23:20 Dose: 30 mg Documented By: ALBA Baclofen (Baclofen 20 Mg Tablet) 20 mg PO 0600,1800 [facility] Last Admin: 01/01/23 06:10 Dose: 20 mg Documented By: ALBA Calcium Carbonate (Calcium Carbonate 500 Mg Tablet) 500 mg PO DAILY@1800 [facility] Last Admin: 12/31/22 17:54 Dose: 500 mg Documented By: NORBERTO Celecoxib (Celecoxib 200 Mg Capsule) 200 mg PO BID [facility] Last Admin: 01/01/23 07:57 Dose: 200 mg Documented By: ANALY Enoxaparin Sodium (Enoxaparin Sodium 40 Mg/0.4 Ml Syringe) 40 mg SUBCUT Q24H [facility] Last Admin: 01/01/23 06:10 Dose: 40 mg Documented By: ALBA Fluoxetine HCl (Fluoxetine Hcl 20 Mg Capsule) 20 mg PO DAILY [facility] Last Admin: 01/01/23 07:57 Dose: 20 mg Documented By: ANALY Ceftriaxone Sodium 1 gm/ (Sodium Chloride) 50 mls @ 100 mls/hr IV BEDTIME [facility] Last Infusion: 12/31/22 21:53 Dose: Infused Documented By: ALBA Melatonin (Melatonin 3 Mg Tablet) 6 mg PO BEDTIME PRN PRN Reason: Insomnia Omeprazole (Omeprazole 20 Mg Capsule.Dr) 20 mg PO DAILY [facility] Last Admin: 01/01/23 07:56 Dose: 20 mg Documented By: ANALY Ondansetron HCl (Ondansetron Hcl 4 Mg/2 Ml Vial) 4 mg IVPUSH Q8H PRN PRN Reason: Nausea and Vomiting Last Admin: 12/31/22 23:25 Dose: 4 mg Documented By: ALBA Oxybutynin Chloride (Oxybutynin Chloride Er 5 Mg Tab.Er.24) 5 mg PO DAILY@0000 [facility] Last Admin: 12/31/22 23:21 Dose: 5 mg Documented By: ALBA Oxycodone HCl (Oxycodone Hcl Immed Release 5 Mg Tablet) 10 mg PO QID PRN PRN Reason: Pain (Scale Score 4-6) Last Admin: 01/01/23 06:10 Dose: 10 mg Documented By: ALBA Ropinirole HCl (Ropinirole Hcl 0.25 Mg Tablet) 0.75 mg PO DAILY PRN PRN Reason: restless legs Last Admin: 12/31/22 13:32 Dose: 0.75 mg Documented By: NORBERTO Sodium Chloride (0.9 % Sodium Chloride Flush 3 Ml Syringe) 3 ml IVFLUSH QSHIFT [facility] Last Admin: 01/01/23 07:57 Dose: 3 ml Documented By: ANALY Tamsulosin HCl (Tamsulosin Hcl 0.4 Mg Capsule) 0.4 mg PO DAILY [facility] Last Admin: 01/01/23 07:58 Dose: Not Given Documented By: ANALY Non-Admin Reason: See Note Vitamin D (Cholecalciferol (Vitamin D3) 25 Mcg Tablet) 25 mcg PO DAILY@1800 [facility] Last Admin: 12/31/22 17:54 Dose: 25 mcg Documented By: NORBERTO Labs 01/01/23 05:17 01/01/23 05:17 Labs: Laboratory Results - last 24 hr 01/01/23 05:17 MCV 94.8 MCH 32.1 MCHC 33.9 RDW 12.2 Plt Count 166 MPV 11.2 Absolute Nucleated RBC 0.000 Nucleated RBC % (auto) 0.0 Anion Gap 10 L Estim Creat Clear Calc 96.3 Estimated GFR > 60 Random Glucose 95 Calcium 8.9 Microbiology Microbiology Results: Microbiology 12/31/22 02:50 Blood Culture - Preliminary Blood - Venous No growth after 24 hours. 12/31/22 02:50 Blood Culture - Preliminary Blood - Venous No growth after 24 hours. Assessment and Plan (1) Sepsis: Status: Acute (2) Urinary tract infection: Status: Acute Plan 67-year-old male with pertinent history of BPH, prostate cancer, mood disorder, GERD, history of spinal cord injury who presents to the emergency department for evaluation of fevers and chills. Sepsis due to acute UTI: Reviewed previous urine culture, resistant to Bactrim. leucocytosis improving , tachy cardia also improved. Lactic acid normal urine cultures pending and blood cultures neg@ 24 hrs continue empiric IV ceftriaxone ( 01/01). History of spinal cord injury: says walk with cane ,moves all ext Continue home baclofen and p.r.n. opioids added Pt eval BPH: On Flomax and oxybutynin Mood disorder: On fluoxetine Gastroesophageal reflux disease: On PPI. generalised weak: add Pt eval. DVT prophylaxis: Lovenox ongoing inpatient hospital stay: sepsis sec to uti-need for IV antibiotics (as above), which is not possible in a lesser acute setting.urine /blood cultures pending Quality Stroke Does the patient have a stroke diagnosis?: No VTE Prior VTE?: No VTE Risk Level:: Medical - moderate - high VTE Device Contraindication: Treatment Not Indicated VTE Drug Contraindication: N/A - Med Ordered
--- NOTE | 2023-01-01 09:40 | MHC.CM.PN ---
PT REPORTS HE LIVES AT HOME WITH HIS AND IS INDEPENDENT WITH CARE HE USES [employer] FOR DME AND HAS NO HOME SERVICES PT REPORTS HE HAS A HCP NAMING HIS HIS AGENT, COPY REQUESTED PCP: MIMI VEGA DELIVERED DCP: HOME NO SERVICES TO TRANSPORT
[2023-01-01] MEDS: ondansetron HCL 4 MG/2 ML VIAL IVPUSH ×2 (12:15→20:17)
[2023-01-01] MEDS: Baclofen 10 MG TABLET 30 MG PO (12:16)
[2023-01-01 15:20] VITALS: BP 109/55; PULSE 64; RESP 18; TEMP 36; O2SAT 95
[2023-01-01] MEDS: Cholecalciferol (Vitamin D3) 25 MCG TABLET PO (17:28)
[2023-01-01 19:16] VITALS: BP 132/64; PULSE 64; RESP 14; TEMP 36.2; O2SAT 95
[2023-01-01] MEDS: rOPINIRole HCL 0.25 MG TABLET 0.75 MG PO (19:51)
[2023-01-01] MEDS: Tamsulosin HCL 0.4 MG CAPSULE PO (21:13)
[2023-01-01] MEDS: cefTRIAXone sodium 1 GM in 0.9 % Sodium Chloride 50 ML IV (21:13)
[2023-01-02] MEDS: oxyBUTYnin chloride ER 5 MG TAB.ER.24 PO (00:07)
[2023-01-02] MEDS: Baclofen 10 MG TABLET 30 MG PO ×2 (00:07→12:05)
[2023-01-02] MEDS: oxyCODONE HCl Immed Release 5 MG TABLET 10 MG PO ×3 (00:10→12:06)
[2023-01-02 03:26] VITALS: BP 143/67; PULSE 60; RESP 16; TEMP 36.4; O2SAT 96
[2023-01-02 05:16] LABS: Estimated Average Glucose 97 mg/dL
[2023-01-02] MEDS: Baclofen 20 MG TABLET PO (06:23)
[2023-01-02] MEDS: Enoxaparin Sodium 40 MG/0.4 ML SYRINGE SUBCUT (06:23)
[2023-01-02 07:06] VITALS: PULSE 54; RESP 16; TEMP 36.4; O2SAT 97
--- NOTE | 2023-01-02 08:48 | MHC.CLN ---
NUTRITION CONSULT FOR WEIGHT LOSS AND DECREASED PO. REVIEW OF WEIGHT HX SHOWS APPROX 3# WEIGHT LOSS X 30 DAYS. CURRENT PO INTAKE 75-100%. DIET=REGULAR. NO ADDITIONAL NUTRITION INTERVENTIONS AT THIS TIME.
[2023-01-02] MEDS: Celecoxib 200 MG CAPSULE PO (09:11)
[2023-01-02] MEDS: 0.9 % Sodium Chloride Flush 3 ML SYRINGE IVFLUSH (09:11)
[2023-01-02] MEDS: FLUoxetine HCl 20 MG CAPSULE PO (09:11)
[2023-01-02] MEDS: Omeprazole 20 MG CAPSULE.DR PO (09:11)
[2023-01-02 09:42] VITALS: PULSE 54; O2SAT 97
--- NOTE | 2023-01-02 11:33 | P.DS_ITS ---
DS: Providers Provider Date of Service: 01/02/23 Date of admission: 12/31/22 04:00 Date of discharge: 01/02/23 Primary care physician: Meghana Dorantes NP Admitting clinician: Florin Padron Attending physician on admission: Florin Padron Attending physician on discharge: Cliff Villalba Discharging clinician: Cliff Villalba DS: Diagnosis Discharge Diagnosis (1) Sepsis: Status: Acute (2) Urinary tract infection: Status: Acute DS: Summary Hospital Course Hospital Course: 67-year-old male with pertinent history of BPH, prostate cancer, mood disorder, GERD, history of spinal cord injury who presents to the emergency department for evaluation of fevers and chills. Patient states he has a history of UTI. He started having fevers and chills on the day of presentation. His temperature was 103 degrees at home and he decided to present to the ER. Patient states he is feeling unwell. Has suprapubic discomfort and increased urinary frequency. He was previously on daily nitrofurantoin which was subsequently changed to daily Bactrim for prophylaxis of UTI. No chest discomfort, palpitations, shortness of breath, changes in bowel habits. He uses 2 canes for ambulation. In the emergency department, patient was found to be septic and urine concerning for UTI. Hospital course: Patient initially admitted for fever and chills found to some suprapubic discomfort-found to have sepsis secondary to UTI-started on IV ceftriaxone, urine culture and blood cultures sent: Patient seem to be significantly improved, now no fever, urine culture grew E coli sensitive to ceftriaxone, blood culture negative at 48 hour. Currently patient is asymptomatic. Will switch patient to cefpodoxime 200 mg p.o. b.i.d. for 14 days. Previously patient had a rash with Ceftin so we will avoid it. Patient was seen by PT: Currently patient is not interested in home PT. plan: complete cefpodoxime 200 mg p.o. b.i.d. for 14 days. Assessment plan discussed the patient detail length he understand and in agreement with above plan. Time spent 50 minute. Time Attestation Discharge coordination time: Greater than 30 minutes Quality: Safe Use of Opioids Does Pt have an Active Cancer Diagnosis on the Problem List?: No Quality: Stroke Does the patient have a stroke diagnosis?: No Physical Exam Vital Signs: Vital Signs: Last Vital Signs Temp 97.5 F 01/02/23 07:06 Pulse 54 01/02/23 09:42 Resp 16 01/02/23 07:06 BP 143/67 H 01/02/23 03:26 Pulse Ox 97 01/02/23 09:42 O2 Del Method Room Air 01/02/23 07:06 BMI result Body Mass Index 23.6 Middle-aged male lying in bed in no distress chest: regular rhythm, S1-S2 heard. Regular breath sounds bilaterally, no wheezing or crackles appreciated Abdomen soft nontender, no guarding, no rigidity no cva tenderness Patient is awake, alert and oriented to self, place, time and person Psych: Normal mood No pedal edema DS: Data Data Completed and Pending Labs on day of discharge: Laboratory Results - last 24 hr 01/01/23 05:17 Estimat Average Glucose 97 Hemoglobin A1c % 5.0 Preliminary micro results at discharge 12/31/22 02:50 Blood Culture - Preliminary Blood - Venous No growth after 48 hours. 12/31/22 02:50 Blood Culture - Preliminary Blood - Venous No growth after 48 hours. Discharge Plan Discharge Anticipated Discharge Date/Time: 01/02/23 11:24 Patient Disposition: Home, Self-Care Discharge Diagnosis: uti and spesis Referrals: Physician,Unknown J [Physician] - 1 Week Discharge Medications: New cefpodoxime 200 mg tablet 200 mg PO BID Qty: 24 0RF Rx Instructions: must administer with a meal/food Continued fluoxetine 20 mg capsule 20 mg PO DAILY ropinirole 0.25 mg tablet 0.75 mg PO DAILY PRN (Reason: restless legs) baclofen 20 mg tablet 30 mg PO BID@1200,0000 calcium carbonate [Calcium 600] 600 mg calcium (1,500 mg) Tablet 600 mg PO DAILY@1800 oxybutynin chloride 5 mg tablet extended release 24hr 5 mg PO DAILY@0000 cholecalciferol (vitamin D3) [Vitamin D3] 25 mcg (1,000 unit) Tablet 25 mcg PO DAILY@1800 omeprazole 20 mg capsule,delayed release(DR/EC) 20 mg PO DAILY@0630 baclofen 20 mg tablet 20 mg PO BID@0600,1800 tamsulosin 0.4 mg capsule 0.4 mg PO DAILY@2100 oxycodone 10 mg tablet 10 mg PO QID PRN (Reason: Pain (Scale Score 4-6)) celecoxib 200 mg capsule 200 mg PO DAILY@1200 Discontinued sulfamethoxazole-trimethoprim 400-80 mg tablet 1 tab PO DAILY@1800 Discharge Orders: Discharge Order (Routine); Ordered 01/02/23 Ordered By: Cliff Villalba Diet: Advance to usual diet Activity on Discharge: As tolerated Stand Alone Forms: Patient Portal Discharge page Care Plan Goals: Patient initially admitted for fever and chills found to some suprapubic d iscomfort-found to have sepsis secondary to UTI-started on IV ceftriaxone, urine culture and blood cultures sent: Patient seem to be significantly improved, now no fever, urine culture grew E coli sensitive to ceftriaxone, blood culture negative at 48 hour. Currently patient is asymptomatic. Will switch patient to cefpodoxime 200 mg p.o. b.i.d. for 14 days. Previously patient had a rash with Ceftin so we will avoid it. Health Concerns: As above. Plan of Treatment: As above. Assessment: As above. Patient Instructions: Urinary Tract Infection in Men (DC), Sepsis (GEN)
--- NOTE | 2023-01-02 11:43 | MHC.CM.PN ---
pt dcd home no services
[2023-01-02] MEDS: cefTRIAXone sodium 1 GM in 0.9 % Sodium Chloride 50 ML IV (14:20)
== END 2023-01-02 15:02 | disposition home or self-care (01) | DRG 872 ==
LOC: HO.ED 03:34 → HO.EDOVER 04:16 → HO.S3 11:28
PROVIDERS: Admitting Provider Student in an Organized Health Care Education/Training Program; Emergency Provider Internal Medicine; PCP Nurse Practitioner Family; Visit Provider Internal Medicine
DX: A41.9 Sepsis, unspecified organism (principal); G82.20 Paraplegia, unspecified; N39.0 Urinary tract infection, site not specified; N40.0 Benign prostatic hyperplasia without lower urinary tract symptoms; B96.20 Unspecified Escherichia coli [E. coli] as the cause of diseases classified elsewhere; K21.9 Gastro-esophageal reflux disease without esophagitis; S24.104S Unspecified injury at T11-T12 level of thoracic spinal cord, sequela; X58.XXXS Exposure to other specified factors, sequela; Z20.822 Contact with and (suspected) exposure to COVID-19; Z87.440 Personal history of urinary (tract) infections; Z87.891 Personal history of nicotine dependence; Z79.2 Long term (current) use of antibiotics; Z79.899 Other long term (current) drug therapy
CPT/HCPCS: 0241U; 36415; 80048; 81001; 83036; 83605; 85025; 85027; 87040; 87086; 87088; 87186; 93005; 97161; 99221; 99285; J0696; J1650; J2405

== ENCOUNTER → 2022-12-31 04:00 | Outpatient (BNV) | payer MEDICARE, SELFPAY | PROVIDERS: Admitting Provider Student in an Organized Health Care Education/Training Program; Emergency Provider Internal Medicine; Visit Provider Student in an Organized Health Care Education/Training Program | DX: A41.9 Sepsis, unspecified organism (principal); N39.0 Urinary tract infection, site not specified | CPT/HCPCS: 99222; 99232; 99239 ==

== ENCOUNTER 2023-02-07 14:22 | Outpatient (REF) | payer MEDICARE, SELFPAY ==
[2023-02-07 16:39] LABS: Appearance Urine Clear; Color Urine Yellow; Glucose Urine UA Negative (Negative); Leukocyte Esterase Urine Negative (Negative); Nitrite Urine Negative (Negative); Urine Blood Negative (Negative); Urine Ketones Negative (Negative); Urine Protein Negative (Neg-Trace)
[2023-02-07 16:42] LABS: Bacteria Urine None Seen (None Seen); Hyaline Casts Urine 0-2 /LPF (0-2); RBC Urine 0-2 /HPF (0-2); Squamous Epithelial Cell Urine 0-2 /HPF (0-2); WBC Urine 0-5 /HPF (0-5)
== END 2023-02-07 14:23 | disposition home or self-care (01) ==
LOC: HO.HMGCLNP 14:22
PROVIDERS: PCP Nurse Practitioner Family; Visit Provider Urology
DX: N39.0 Urinary tract infection, site not specified (principal)
CPT/HCPCS: 81001; 87086

== ENCOUNTER 2023-02-15 15:26 | Outpatient (AMB) | payer MEDICARE, MEDICAID, SELFPAY ==
--- NOTE | 2023-02-15 15:38 | MHC.OFFVIS ---
Intake Intake Visit Reasons: ER Follow up/UTI sepsis Intake Note: Patient is Present for Follow Up UTI Urology Medication: Oxybutynin, Tamsulosin Antibiotic Allergies: Levofloxacin Blood Thinners: none Allergies fentanyl [FENTANYL] Allergy (Severe, Verified 02/15/23 15:40) GETS VERY ANGRY morphine [MORPHINE] Allergy (Severe, Verified 02/15/23 15:40) GETS VERY ANGRY cefuroxime Allergy (Severe, Uncoded 02/15/23 15:40) Rash levofloxacin Allergy (Intermediate, Uncoded 02/15/23 15:40) Blister HPI HPI Comments History of Present Illness Details Tony is a pleasant male.? He is a patient of Dr. Dorantes.? He is seen for the following urologic issue. - prostate cancer - recurring UTI Recurrent urosepsis E coli was Bactrim resistant Sensitive to medications Prior UTI was Providencia that was Macrobid resistant Will give self starting antibiotics with fosfomycin Prostate cancer Diagnosed with Dr. Reyna 2017 Pathology diagnosis [place] 6 02/24 cores 5% Initial therapy active surveillance PSA - 08/03 0.78, 02/02 0.62, 08/04 0.5, 02/03 1.2, 11/05 0.8 Recurring UTI Prior severe back injury Baseline tamsulosin Remains on suppression with Bactrim alone Upset stomach with Macrobid Urine culture - 01/03 Staphylococcus resistant to Bactrim sensitive to Macrobid and tetracycline - 02/02 providencia - sensitive to Bactrim resistant to Macrobid - 10/05 E coli Levaquin, Bactrim resistant - 01/05 E coli Levaquin and Bactrim resistant [facility] Medical History History of shingles Hx of spinal cord injury Prostate cancer Surgical History History of surgery Social History Household Members: Spouse Housing: Apartment Do you presently have visiting nurse or other home services: No Alcohol intake: former Patient Tobacco Use Status: Former Tobacco user Tobacco use type: Cigarette service: No Review of Systems Const Denies chills and Denies fever(s) Card Reports no additional complaints and Denies syncope Resp Denies cough GI Denies abdominal pain and Denies heartburn Reports as per HPI and Denies change in libido Neuro Denies syncope Psych Denies change in libido Endo Denies change in libido Physical Exam Const General: cooperative, healthy appearing, comfortable and no acute distress Orientation/consciousness: patient oriented x3 HEENT Face and sinus: Yes normal facial exam Mouth: moist mucous membranes Neck Neck: Yes normal visual inspection, Yes full ROM and Yes trachea midline Chest Chest palpation & inspection: normal inspection of the chest Resp Effort & Inspection: normal respiratory effort, able to speak in complete sentences and no respiratory distress GI Inspection: Yes normal to inspection Back/Spine/Pelvis Cervical Spine: normal cervical lordosis Thoracic/Lumbar Spine: thoracic and lumbar spine normal to inspection Skin General skin exam: no rashes or lesions noted Neuro General: patient oriented x3, gait normal, tone normal and moves all extremities Extrem General: Yes normal to inspection and Yes capillary refill normal Results AMB Urinalysis, Automated UA Leukoctes 0 Miguel Ángel/uL Last Edit by MARCIA Blanco on 02/15/23 15:41 UA Nitrite Negative Last Edit by Nilda Fisher [facility] on 02/15/23 15:41 UA Urobilinogen 0.2 mg/dL Last Edit by Nilda Fisher [facility] on 02/15/23 15:41 UA Protein 0 mg/dL Last Edit by Nilda Fisher [facility] on 02/15/23 15:41 UA pH 7.5 Last Edit by Nilda Fisher [facility] on 02/15/23 15:41 UA Blood 0 Dexter/uL Last Edit by Nilda Fisher [facility] on 02/15/23 15:41 UA Specific [place] 1.010 Last Edit by Nilda Fisher [facility] on 02/15/23 15:41 UA Ketone Negative Last Edit by MARCIA Blanco on 02/15/23 15:41 UA Bilirubin 0 mg/dL Last Edit by Nilda Fisher [facility] on 02/15/23 15:41 UA Glucose 0 mg/dL Last Edit by Nilda Fisher [facility] on 02/15/23 15:41 Results Reviewed Results Reviewed: Laboratory Last Values Urine pH (Auto) 7.5 02/15/23 15:40 Specific [place] (Auto) 1.010 02/15/23 15:40 Urine Protein (Auto) 0 mg/dL 02/15/23 15:40 Glucose (UA)(Auto) 0 mg/dL 02/15/23 15:40 Urine Ketones (Auto) Negative 02/15/23 15:40 Urine Blood (Auto) 0 Dexter/uL 02/15/23 15:40 Urine Nitrite (Auto) Negative 02/15/23 15:40 Urine Bilirubin (Auto) 0 mg/dL 02/15/23 15:40 Urine Urobilinogen (Auto) 0.2 mg/dL 02/15/23 15:40 Leukocyte Esterase (Auto) 0 Miguel Ángel/uL 02/15/23 15:40 Assessment & Plan Assessment & Plan (1) BPH w urinary obs/LUTS: Code(s): N40.1 - Benign prostatic hyperplasia with lower urinary tract symptoms; N13.8 - Other obstructive and reflux uropathy (2) Recurrent UTI (urinary tract infection): Code(s): N39.0 - Urinary tract infection, site not specified (3) Prostate cancer: Code(s): C61 - Malignant neoplasm of prostate Plan Fosfomycin self starting medications Orders: Orders AMB Urinalysis Automated Today N39.0 - Urinary tract infection, site not specified, Z13.9 - Encounter for screening, unspecified Medications: New fosfomycin tromethamine Take every 3rd day 3 grams PO Q3D 4 packets 1RF N39.0 - Urinary tract infection, site not specified Discontinued sulfamethoxazole-trimethoprim 400-80 mg (Bactrim) Discontinued Reason: Doctor's Order 1 tab PO DAILY 90 days 90 tabs 1RF UTI suppression Patient Instructions: Imaging studies, laboratory and physical exam results were discussed and reviewed in detail. No major barriers to patient understanding were identified. An opportunity to ask questions regarding the treatment plan was provided. All questions were answered. The patient expressed understanding and agreement with the above treatment plan. The patient is aware they should contact our office by phone for worsening of their current condition or the appearance of new urologic symptoms. Compliance is encouraged with any medications and followup testing that is ordered. It is a privilege to participate in the urologic care of your patient. If you have any questions or concerns regarding treatment for the above conditions, or other urologic issues, please do not hesitate to contact me. The office telephone contact is [phone]. This note is constructed using voice recognition software. While every effort has been made to ensure accuracy instrumentation and controls designer errors may have been included. Yours sincerely, Dr Herrera Doshi MD, [facility] - Urology Providers of Expert, Compassionate Care for the Genitourinary System Coding Level of Care Code Est Pt Level 4 (40309) Diagnoses BPH w urinary obs/LUTS N40.1; N13.8 Recurrent UTI (urinary tract infection) N39.0 Prostate cancer C61
== END 2023-02-15 16:00 | disposition home or self-care (01) ==
PROVIDERS: PCP Nurse Practitioner Family; Visit Provider Urology
DX: N40.1 Benign prostatic hyperplasia with lower urinary tract symptoms (principal); N13.8 Other obstructive and reflux uropathy; N39.0 Urinary tract infection, site not specified; C61 Malignant neoplasm of prostate; Z13.9 Encounter for screening, unspecified
CPT/HCPCS: 99214

== ENCOUNTER → 2023-02-15 15:26 | Outpatient (BNVA) | payer MEDICARE, SELFPAY | PROVIDERS: PCP Nurse Practitioner Family; Visit Provider Urology | DX: N40.1 Benign prostatic hyperplasia with lower urinary tract symptoms (principal); N13.8 Other obstructive and reflux uropathy; N39.0 Urinary tract infection, site not specified; C61 Malignant neoplasm of prostate | CPT/HCPCS: 81003; 99212 ==

== ENCOUNTER 2023-03-15 08:52 | Outpatient (REF) | payer MEDICARE, OTHER, SELFPAY ==
--- NOTE | ~2023-03-15 | CT_ITS ---
EXAMINATION: CT ABDOMEN AND PELVIS WITH CONTRAST CLINICAL INFORMATION: Abnormal weight loss COMPARISON: None available. TECHNIQUE: Multidetector volumetric images were obtained from the superior aspect of the liver through the pubic symphysis following administration 85 mL of Omnipaque 350 intravenous contrast. Sagittal and coronal reformatted images were obtained on the technologist's workstation. Oral contrast: No This CT examination was performed using dose optimization techniques as appropriate, variously including the following: *Automated exposure control *Adjustment of mA and/or kV according to patient size (this includes techniques or standardized protocols for targeted exams where dose is matched to indication/reason for exam; i.e. extremities or head) *Use of iterative reconstruction technique DLP: 350.28 mGy-cm FINDINGS: LUNG BASES: There is marked asymmetric elevation of right hemidiaphragm, causing compression atelectasis in the right lower lobe. LIVER: 3 low-attenuation cystic lesions are seen in left hepatic lobe segment 3 with the largest cyst at anterior lateral capsular border measuring 1.7 cm in diameter, mean attenuation of 18 Hounsfield units. GALLBLADDER AND BILIARY TREE: Gallbladder appears unremarkable without calcified stones. Common bile duct is not dilated. SPLEEN: The spleen is normal in size without focal lesion. PANCREAS: The pancreas appears unremarkable. ADRENAL GLANDS: Adrenal glands are normal in size without focal lesion bilaterally. KIDNEYS: Bilateral kidneys are normal in size without focal lesion. BOWELS: There is normal filling of only the small bowel loops with oral contrast down to distal pelvic ileum. There is mild fecal distention of the ascending and transverse colon. Normal appendix is seen projecting medial and inferior to the cecum. RETROPERITONEUM: No abnormally enlarged retroperitoneal lymph nodes, mass or hematoma could be seen. BLOOD VESSELS: Abdominal aorta is normal in size with scattered atherosclerotic calcifications and smoothly patent. ABDOMINAL WALL: Small umbilical hernia containing mesenteric fat is seen. PERITONEUM: There was no ascites. There were no abdominal peritoneal inflammatory changes seen. No free peritoneal air was seen. No abnormally enlarged mesenteric lymph nodes are found. BONES: Extensive thoracolumbar spine posterior fixation with transpedicular screws and vertical bars is partially visualized down to L2 level. Multilevel advanced degenerative lumbar disc disease is present. Mild compression fracture of L2 is seen. No focal bone lesion diagnostic of metastatic disease could be seen in the lumbar region. EXAMINATION: CT pelvis. TECHNIQUE: Multiple axial images were obtained from iliac crest to the inferior pubic rami following the administration of 85 mL of Omnipaque 350. Coronal and sagittal images were reconstructed from axial image data. Dose reduction technique: One or more of the following individual dose optimization techniques were used including: Automated exposure control, mA and/or kV were adjusted according to patient size or iterative reconstruction. FINDINGS: URINARY BLADDER: Urinary bladder fills normally with urine. BOWELS: There is mild fecal distention of the sigmoid colon. There is moderate fecal distention of the rectum. GENITAL ORGANS: Seminal vesicles are unremarkable. Prostate gland is normal. LYMPH NODES: No abnormally enlarged iliac or inguinal lymph nodes are seen. PERITONEUM: No inflammatory changes, ascites or free peritoneal air are found in the pelvis. BONES: No fracture or dislocation. No focal bone lesion diagnostic of metastatic disease could be seen in the pelvis. CT/CT abdomen pelvis w IV con IMPRESSION: 1. No evidence of abdominal mass or abnormally enlarged lymph nodes. 2. Multiple hepatic cysts. 3. Asymmetric elevation of right hemidiaphragm with associated compression atelectasis in the right lower lobe, compatible with diaphragmatic eventration or paralysis. 4. Mild fecal distention of the sigmoid colon and moderate fecal distention of the rectum.
[2023-03-15] MEDS: iohexoL 350 MG/ML 75 ML INFUS..BTL 85 ML IV (11:35)
[2023-03-15] MEDS: Barium Sulfate Oral (Vanilla) 450 ML ORAL.SUSP 900 ML PO (11:35)
[2023-03-16 07:34] LABS: Creatinine POC 0.6 mg/dL (0.5-1.4); GFR POC > 60
== END 2023-03-15 08:53 | disposition home or self-care (01) ==
LOC: HO.CT 08:52
PROVIDERS: PCP Nurse Practitioner Family; Visit Provider Nurse Practitioner Family
DX: R63.4 Abnormal weight loss (principal); R10.30 Lower abdominal pain, unspecified
CPT/HCPCS: 74177; 82565; Q9967

== ENCOUNTER 2023-05-25 09:29 | Outpatient (AMB) | payer MEDICARE, SELFPAY ==
--- NOTE | 2023-05-25 09:31 | A.OFFVIS_ITS ---
Intake Intake Visit Reasons: Med Review(Fosfomycin)Confirmed Intake Note: Patient presents today for a follow up on: Fosfomycin Meds- Oxybutynin, Tamsulosin Allergies to Antibiotic- Cefuroxime, Levofloxacin Blood Thinner- None Technical Business Systems Analyst Required: No Allergies fentanyl [FENTANYL] Allergy (Severe, Verified 05/25/23 09:33) GETS VERY ANGRY morphine [MORPHINE] Allergy (Severe, Verified 05/25/23 09:33) GETS VERY ANGRY cefuroxime Allergy (Severe, Uncoded 05/25/23 09:33) Rash levofloxacin Allergy (Intermediate, Uncoded 05/25/23 09:33) Blister Medication List - Last Reconciled 05/25/23 by Herrera Doshi MD baclofen 30 mg PO BID@1200,0000 baclofen 20 mg PO BID@0600,1800 calcium carbonate (Calcium) 600 mg PO DAILY@1800 celecoxib 200 mg PO DAILY@1200 cholecalciferol (vitamin D3) (Vitamin D3) 25 mcg PO DAILY@1800 fluoxetine 20 mg PO DAILY fosfomycin tromethamine 3 grams PO Q3D 4 doses omeprazole 20 mg PO DAILY@0630 ondansetron 4 mg PO Q8H PRN oxycodone 10 mg PO QID PRN ropinirole 0.75 mg PO DAILY PRN HPI HPI Comments History of Present Illness Details Tony is a pleasant male.? He is a patient of Dr. Dorantes.? He is seen for the following urologic issue. - prostate cancer - recurring UTI Telemedicine Evaluation 15 min Consultation Doximity Reginald Video Recurrent urosepsis E coli was Bactrim and Levaquin resistant Sensitive to medications Prior UTI was Providencia that was Macrobid resistant Given fosfomycin self starting Interested in trialing tadalafil for bladder emptying Prescription given Prostate cancer Diagnosed with Dr. Reyna 2017 Pathology diagnosis [place] 6 02/24 cores 5% Initial therapy active surveillance PSA - 08/03 0.78, 02/02 0.62, 08/04 0.5, 02/03 1.2, 11/05 0.8 Recurring UTI Prior severe back injury Baseline tamsulosin Remains on suppression with Bactrim alone Upset stomach with Macrobid Urine culture - 01/03 Staphylococcus resistant to Bact rim sensitive to Macrobid and tetracycline - 02/02 providencia - sensitive to Bactr im resistant to Macrobid - 10/05 E coli Levaquin, Bactrim resistan t - 01/05 E coli Levaquin and Bactrim resi stant [facility] Medical History History of shingles Hx of spinal cord injury Prostate cancer Surgical History History of surgery Social History Household Members: Spouse Housing: Apartment Do you presently have visiting nurse or other home services: No Alcohol intake: former Patient Tobacco Use Status: Former Tobacco user Tobacco use type: Cigarette service: No Review of Systems Const All systems reviewed & are unremarkable except as noted in HPI and below Reports no additional complaints Resp Reports no additional complaints GI Reports no additional complaints Reports as per HPI Musc Reports no additional complaints Physical Exam Telemedicine evaluation Appropriate responses Regular breathing rate and rhythm HEENT Head: Yes normal to inspection Ears: hearing grossly normal bilaterally Eyes General: appearance normal, both eyes and all related structures Neck Neck: Yes normal visual inspection Chest Chest palpation & inspection: normal inspection of the chest Resp Effort & Inspection: normal respiratory effort and able to speak in complete sentences Assessment & Plan Assessment & Plan (1) Prostate cancer: Code(s): C61 - Malignant neoplasm of prostate (2) BPH w urinary obs/LUTS: Code(s): N40.1 - Benign prostatic hyperplasia with lower urinary tract symptoms; N13.8 - Other obstructive and reflux uropathy (3) Recurrent UTI (urinary tract infection): Code(s): N39.0 - Urinary tract infection, site not specified Plan Six month follow-up labs office Orders: Orders Prostate Specific Antigen 6 Months C61 - Malignant neoplasm of prostate Medications: New tamsulosin 0.4 mg PO BEDTIME 90 days 90 caps 1RF N13.8 - Other obstructive and reflux uropathy, N40.1 - Benign prostatic hyperplasia with lower urinary tract symptoms tamsulosin 0.8 mg (2 x 0.4 mg) PO BEDTIME 90 days 180 caps 1RF N13.8 - Other obstructive and reflux uropathy, N40.1 - Benign prostatic hyperplasia with lower urinary tract symptoms tadalafil 5 mg PO DAILY 90 days 90 tabs 1RF sexual activity N13.8 - Other obstructive and reflux uropathy, N40.1 - Benign prostatic hyperplasia with lower urinary tract symptoms, N52.01 - Erectile dysfunction due to arterial insufficiency Discontinued cefpodoxime must administer with a meal/food Discontinued Reason: Patient Completed Course 200 mg PO BID 24 tabs 0RF Patient Instructions: Imaging studies, laboratory and physical exam results were discussed and reviewed in detail. No major barriers to patient understanding were identified. An opportunity to ask questions regarding the treatment plan was provided. All q uestions were answered. The patient expressed understanding and agreement with the above treatment plan. The patient is aware they should contact our office by phone for worsening of their current condition or the appearance of new urologic symptoms. Compliance is encouraged with any medications and followup testing that is ordered. It is a privilege to participate in the urologic care of your patient. If you have any questions or concerns regarding treatment for the above conditions, or other urologic issues, please do not hesitate to contact me. The office telephone contact is [phone]. This note is constructed using voice recognition software. While every effort has been made to ensure accuracy resource center teacher errors may have been included. Yours sincerely, Dr Herrera Doshi MD, [facility] - Urology Providers of Expert, Compassionate Care for the Genitourinary System Telehealth Telehealth Location of provider rendering services: practice address Location of patient: address on file Patient Identification confirmed using: Name, : Yes Telehealth method: video Patient verbally consented to treatment: Yes Patient verbally consented to billing insurance company: Yes Patient informed of any privacy concerns related to visit: Yes Minutes spent on Phone/Video with Pt.: 15 Coding Level of Care Code Tele Est Pt Level 4 (35843) Diagnoses Prostate cancer C61 BPH w urinary obs/LUTS N40.1; N13.8 Recurrent UTI (urinary tract infection) N39.0
== END 2023-05-25 10:32 | disposition home or self-care (01) ==
LOC: HO.HUSH 09:29
PROVIDERS: PCP Nurse Practitioner Family; Visit Provider Urology
DX: C61 Malignant neoplasm of prostate (principal); N40.1 Benign prostatic hyperplasia with lower urinary tract symptoms; N13.8 Other obstructive and reflux uropathy; N39.0 Urinary tract infection, site not specified
CPT/HCPCS: 99214

== ENCOUNTER → 2023-05-25 09:29 | Outpatient (BNVA) | payer MEDICARE, OTHER, SELFPAY | PROVIDERS: PCP Nurse Practitioner Family; Visit Provider Urology ==

== ENCOUNTER 2023-06-01 12:22 | Outpatient (REF) | payer MEDICARE, SELFPAY ==
[2023-06-01 16:16] LABS: Appearance Urine Clear; Color Urine Yellow; Glucose Urine UA Negative (Negative); Leukocyte Esterase Urine Negative (Negative); Nitrite Urine Negative (Negative); PH 6.5 (5.0-9.0); Urine Blood Negative (Negative); Urine Ketones Negative (Negative); Urine Protein Negative (Neg-Trace)
[2023-06-01 16:29] LABS: Bacteria Urine None Seen (None Seen); Hyaline Casts Urine 0-2 /LPF (0-2); RBC Urine 0-2 /HPF (0-2); Squamous Epithelial Cell Urine 0-2 /HPF (0-2); WBC Urine 0-5 /HPF (0-5)
== END 2023-06-01 12:23 | disposition home or self-care (01) ==
LOC: HO.HMGCLNP 12:22
PROVIDERS: PCP Nurse Practitioner Family; Visit Provider Urology
DX: N39.0 Urinary tract infection, site not specified (principal)
CPT/HCPCS: 81001; 87086

== ENCOUNTER 2023-07-08 12:45 | Outpatient (REF) | payer MEDICARE, SELFPAY ==
[2023-07-08 15:30] LABS: Appearance Urine Clear; Color Urine Yellow; Glucose Urine UA Negative (Negative); Leukocyte Esterase Urine Negative (Negative); Nitrite Urine Negative (Negative); Urine Blood Negative (Negative); Urine Ketones Negative (Negative); Urine Protein Negative (Neg-Trace)
[2023-07-08 15:33] LABS: Bacteria Urine None Seen (None Seen); Hyaline Casts Urine 0-2 /LPF (0-2); RBC Urine 0-2 /HPF (0-2); Squamous Epithelial Cell Urine 0-2 /HPF (0-2); WBC Urine 0-5 /HPF (0-5)
== END 2023-07-08 12:46 | disposition home or self-care (01) ==
LOC: HO.HMGCLNP 12:45
PROVIDERS: PCP Nurse Practitioner Family; Visit Provider Urology
DX: N39.0 Urinary tract infection, site not specified (principal)
CPT/HCPCS: 81001; 87086

== ENCOUNTER 2023-08-08 15:14 | Outpatient (REF) | payer MEDICARE, SELFPAY ==
[2023-08-08 17:15] LABS: Prostate Specific Antigen 0.71 ng/mL (<0.05-4.0)
== END 2023-08-08 15:15 | disposition home or self-care (01) ==
LOC: HO.HMGCLDS 15:14
PROVIDERS: PCP Internal Medicine; Visit Provider Urology
DX: C61 Malignant neoplasm of prostate (principal); Z12.5 Encounter for screening for malignant neoplasm of prostate
CPT/HCPCS: 36415; 84153

== ENCOUNTER 2023-08-18 13:43 | Outpatient (AMB) | payer MEDICARE, MEDICAID, SELFPAY ==
--- NOTE | 2023-08-18 13:45 | A.OFFVIS_ITS ---
Intake Visit Reasons: 6M Med Review Intake Note: Patient is present for 6m/med review Urology Medication:pyridium,bactrim,tadalafil,tamsulosin,fosfomycin tromethamine Antibiotic Allergy: Blood Thinner:none Tungsten Tender Required: No Allergies fentanyl [FENTANYL] Allergy (Severe, Verified 08/18/23 13:48) GETS VERY ANGRY morphine [MORPHINE] Allergy (Severe, Verified 08/18/23 13:48) GETS VERY ANGRY cefuroxime Allergy (Severe, Uncoded 08/18/23 13:48) Rash levofloxacin Allergy (Intermediate, Uncoded 08/18/23 13:48) Blister Medication List - Last Reconciled 08/18/23 by Herrera Doshi MD baclofen 30 mg PO BID@1200,0000 calcium carbonate (Calcium 600) 600 mg PO DAILY@1800 celecoxib 200 mg PO DAILY@1200 cholecalciferol (vitamin D3) (Vitamin D3) 25 mcg PO DAILY@1800 fosfomycin tromethamine 3 grams PO Q3D 4 doses omeprazole 20 mg PO DAILY@0630 ondansetron 4 mg PO Q8H PRN oxycodone 10 mg PO QID PRN ropinirole 0.75 mg PO DAILY PRN sulfamethoxazole-trimethoprim 400-80 mg (Bactrim) 1 tab PO DAILY 90 days tadalafil 5 mg PO DAILY 90 days tamsulosin 0.8 mg (2 x 0.4 mg) PO BEDTIME 90 days HPI Comments Details: Tony is a pleasant male.? He is a patient of Dr. Dorantes.? He is seen for the following urologic issue. - prostate cancer - recurring UTI Follow-up for management of recurrent UTI and bladder emptying PSA well controlled Will try stopping tamsulosin Remain on daily low-dose Bactrim Recurrent urosepsis E coli was Bactrim and Levaquin resistant Sensitive to medications Prior UTI was Providencia that was Macrobid resistant Given fosfomycin self starting Interested in trialing tadalafil for bladder emptying Prescription given Prostate cancer Diagnosed with Dr. Reyna 2017 Pathology diagnosis [place] 6 02/24 cores 5% Initial therapy active surveillance PSA - 08/03 0.78, 02/02 0.62, 08/04 0.5, 02/03 1.2, 11/05 0.8, 08/06 0.7 Recurring UTI Prior severe back injury Baseline tamsulosin Remains on suppression with Bactrim alone Upset stomach with Macrobid Urine culture - 01/03 Staphylococcus resistant to Bactrim sensitive to Macrobid and tetracycline - 02/02 providencia - sensitive to Bactrim resistant to Macrobid - 10/05 E coli Levaquin, Bactrim resistant - 01/05 E coli Levaquin and Bactrim resistant PFSH Medical History History of shingles Hx of spinal cord injury Prostate cancer Surgical History History of surgery Social History Household Members: Spouse Housing: Apartment Do you presently have visiting nurse or other home services: No Alcohol intake: former Patient Tobacco Use Status: Former Tobacco user Tobacco use type: Cigarette service: No Review of Systems Const Denies chills and Denies fever(s) Card Reports no additional complaints and Denies syncope Resp Denies cough GI Denies abdominal pain and Denies heartburn Reports as per HPI and Denies change in libido Neuro Denies syncope Psych Denies change in libido Endo Denies change in libido Physical Exam Const General: cooperative, healthy appearing, comfortable and no acute distress Orientation/consciousness: patient oriented x3 HEENT Face and sinus: Yes normal facial exam Mouth: moist mucous membranes Neck Neck: Yes normal visual inspection, Yes full ROM and Yes trachea midline Chest Chest palpation & inspection: normal inspection of the chest Resp Effort & Inspection: normal respiratory effort, able to speak in complete sentences and no respiratory distress GI Inspection: Yes normal to inspection Back/Spine/Pelvis Cervical Spine: normal cervical lordosis Thoracic/Lumbar Spine: thoracic and lumbar spine normal to inspection Skin General skin exam: no rashes or lesions noted Neuro General: patient oriented x3, gait normal, tone normal and moves all extremities Extrem General: Yes normal to inspection and Yes capillary refill normal Results AMB Urinalysis, Automated UA Leukoctes 0 Miguel Ángel/uL Last Edit by YARELI Medrano on 08/18/23 14:00 UA Nitrite Negative Last Edit by YARELI Medrano on 08/18/23 14:00 UA Urobilinogen 0.2 mg/dL Last Edit by YARELI Medrano on 08/18/23 14:0 0 UA Protein 0 mg/dL Last Edit by YARELI Medrano on 08/18/23 14:00 UA pH 6.0 Last Edit by YARELI Medrano on 08/18/23 14:00 UA Blood 0 Dexter/uL Last Edit by YARELI Medrano on 08/18/23 14:00 UA Specific [place] 1.015 Last Edit by YARELI Medrano on 08/18/23 14: 00 UA Ketone Negative Last Edit by YARELI Medrano on 08/18/23 14:00 UA Bilirubin 0 mg/dL Last Edit by YARELI Medrano on 08/18/23 14:00 UA Glucose 0 mg/dL Last Edit by YARELI Medrano on 08/18/23 14:00 Results Reviewed Results Reviewed: Laboratory Last Values Urine pH (Auto) 6.0 08/18/23 13:59 Specific [place] (Auto) 1.015 08/18/23 13:59 Urine Protein (Auto) 0 mg/dL 08/18/23 13:59 Glucose (UA)(Auto) 0 mg/dL 08/18/23 13:59 Urine Ketones (Auto) Negative 08/18/23 13:59 Urine Blood (Auto) 0 Dexter/uL 08/18/23 13:59 Urine Nitrite (Auto) Negative 08/18/23 13:59 Urine Bilirubin (Auto) 0 mg/dL 08/18/23 13:59 Urine Urobilinogen (Auto) 0.2 mg/dL 08/18/23 13:59 Leukocyte Esterase (Auto) 0 Miguel Ángel/uL 08/18/23 13:59 Assessment & Plan Assessment & Plan (1) Prostate cancer: Code(s): C61 - Malignant neoplasm of prostate Category: Medical (2) BPH w urinary obs/LUTS: Code(s): N40.1 - Benign prostatic hyperplasia with lower urinary tract symptoms; N13.8 - Other obstructive and reflux uropathy Category: Medical (3) Recurrent UTI (urinary tract infection): Code(s): N39.0 - Urinary tract infection, site not specified Category: Medical Plan Six-month follow-up Prostate MRI Orders: Orders AMB Urinalysis Automated Today Z13.9 - Encounter for screening, unspecified MR pelvis wo/w con 6 Months C61 - Malignant neoplasm of prostate Prostate Specific Antigen 6 Months C61 - Malignant neoplasm of prostate Medications: Refilled tadalafil 5 mg PO DAILY 90 days 90 tabs 1RF sexual activity N13.8 - Other obstructive and reflux uropathy, N40.1 - Benign prostatic hyperplasia with lower urinary tract symptoms, N52.01 - Erectile dysfunction due to arterial insufficiency sulfamethoxazole-trimethoprim 400-80 mg (Bactrim) 1 tab PO DAILY 90 days 90 tabs 1RF UTI suppression C61 - Malignant neoplasm of prostate Patient Instructions: Imaging studies, laboratory and physical exam results were discussed and reviewed in detail. No major barriers to patient understanding were identified. An opportunity to ask questions regarding the treatment plan was provided. All questions were answered. The patient expressed understanding and agreement with the above treatment plan. The patient is aware they should contact our office by phone for worsening of their current condition or the appearance of new urologic symptoms. Compliance is encouraged with any medications and followup testing that is ordered. It is a privilege to participate in the urologic care of your patient. If you have any questions or concerns regarding treatment for the above conditions, or other urologic issues, please do not hesitate to contact me. The office telephone contact is [phone]. This note is constructed using voice recognition software. While every effort has been made to ensure accuracy director of individual giving errors may have been included. Yours sincerely, Dr Herrera Doshi MD, [facility] - Urology Providers of Expert, Compassionate Care for the Genitourinary System Coding Level of Care Code Est Pt Level 3 (02745) Diagnoses Prostate cancer C61 BPH w urinary obs/LUTS N40.1; N13.8 Recurrent UTI (urinary tract infection) N39.0
== END 2023-08-18 14:14 | disposition home or self-care (01) ==
PROVIDERS: PCP Nurse Practitioner Family; Visit Provider Urology
DX: C61 Malignant neoplasm of prostate (principal); N40.1 Benign prostatic hyperplasia with lower urinary tract symptoms; N13.8 Other obstructive and reflux uropathy; N39.0 Urinary tract infection, site not specified; Z13.9 Encounter for screening, unspecified
CPT/HCPCS: 99213

== ENCOUNTER → 2023-08-18 13:43 | Outpatient (BNVA) | payer MEDICARE, MEDICAID, SELFPAY | PROVIDERS: PCP Nurse Practitioner Family; Visit Provider Urology | DX: C61 Malignant neoplasm of prostate (principal); N40.1 Benign prostatic hyperplasia with lower urinary tract symptoms; N13.8 Other obstructive and reflux uropathy; N39.0 Urinary tract infection, site not specified | CPT/HCPCS: 81003; 99212 ==

== ENCOUNTER 2023-10-04 09:10 | Outpatient (REF) | payer MEDICARE, MEDICAID, SELFPAY ==
[2023-10-04 17:29] LABS: Appearance Urine Clear; Color Urine Yellow; Glucose Urine UA Negative (Negative); Leukocyte Esterase Urine Trace (Negative); Nitrite Urine Negative (Negative); Specific Gravity - Urine <= 1.005 (1.005-1.025); UMIC TRIGGER UA YES; Urine Blood Negative (Negative); Urine Ketones Negative (Negative); Urine Protein Negative (Neg-Trace)
[2023-10-04 17:33] LABS: Bacteria Urine None Seen (None Seen); Hyaline Casts Urine 0-2 /LPF (0-2); RBC Urine 0-2 /HPF (0-2); Squamous Epithelial Cell Urine 0-2 /HPF (0-2); WBC Urine 0-5 /HPF (0-5)
== END 2023-10-04 09:11 | disposition home or self-care (01) ==
LOC: HO.HMGCLNP 09:10
PROVIDERS: Visit Provider Urology
DX: N39.0 Urinary tract infection, site not specified (principal)
CPT/HCPCS: 81001; 87086

== ENCOUNTER 2024-02-15 15:06 | Outpatient (REF) | payer MEDICARE, MEDICAID, SELFPAY ==
[2024-02-15 16:53] LABS: Prostate Specific Antigen 1.11 ng/mL (<0.05-4.0)
== END 2024-02-15 15:07 | disposition home or self-care (01) ==
LOC: HO.HMGCLDS 15:06
PROVIDERS: PCP Physician Assistant Surgical; Visit Provider Urology
DX: C61 Malignant neoplasm of prostate (principal); Z12.5 Encounter for screening for malignant neoplasm of prostate
CPT/HCPCS: 36415; 84153

== ENCOUNTER 2024-02-20 09:43 | Outpatient (AMB) | payer MEDICARE, MEDICAID, SELFPAY ==
--- NOTE | 2024-02-20 09:44 | MHC.OFFVIS ---
Intake Visit Reasons: 6M PSA/MRI(set)mri not scheduled Intake Note: Patient is present for 6M PSA/MRI (MRI NOT SCHEDULE) Urology Medication:TADALAFIL Antibiotic Allergy:NONE Blood Thinner:NONE Senior Cost Estimator Required: No Allergies fentanyl [FENTANYL] Allergy (Severe, Verified 02/20/24 09:50) GETS VERY ANGRY morphine [MORPHINE] Allergy (Severe, Verified 02/20/24 09:50) GETS VERY ANGRY cefuroxime Allergy (Severe, Uncoded 02/20/24 09:50) Rash levofloxacin Allergy (Intermediate, Uncoded 02/20/24 09:50) Blister HPI Comments Details: Tony is a pleasant male.? He is a patient of Dr. Dorantes.? He is seen for the following urologic issue. - prostate cancer - recurring UTI Telemedicine Evaluation 15 min Consultation [employer] Reginald Video Follow-up for management of recurrent UTI and bladder emptying PSA well controlled - 1.1 Bladder remain stable with tadalafil Remain on daily low-dose Bactrim Prescription provided Six-month follow-up Recurrent urosepsis E coli was Bactrim and Levaquin resistant Sensitive to medications Prior UTI was Providencia that was Macrobid resistant Given fosfomycin self starting On tadalafil for bladder emptying and stabilize Prostate cancer Diagnosed with Dr. Reyna 2017 Pathology diagnosis [place] 6 02/24 cores 5% Initial therapy active surveillance PSA - 08/03 0.78, 02/02 0.62, 08/04 0.5, 02/03 1.2, 11/05 0.8, 08/06 0.7, 03/09 1.1 Recurring UTI Prior severe back injury Baseline tamsulosin Remains on suppression with Bactrim alone Upset stomach with Macrobid Urine culture - 01/03 Staphylococcus resistant to Bactrim sensitive to Macrobid and tetracycline - 02/02 providencia - sensitive to Bactrim resistant to Macrobid - 10/05 E coli Levaquin, Bactrim resistant - 01/05 E coli Levaquin and Bactrim resistant PFSH Medical History History of shingles Hx of spinal cord injury Prostate cancer Surgical History History of surgery Social History Household Members: Spouse Housing: Apartment Do you presently have visiting nurse or other home services: No Alcohol intake: former Patient Tobacco Use Status: Former Tobacco user Tobacco use type: Cigarette service: No Review of Systems Const All systems reviewed & are unremarkable except as noted in HPI and below Reports no additional complaints Resp Reports no additional complaints GI Reports no additional complaints Reports as per HPI Musc Reports no additional complaints Physical Exam Telemedicine evaluation Appropriate responses Regular breathing rate and rhythm HEENT Head: Yes normal to inspection Ears: hearing grossly normal bilaterally Eyes General: appearance normal, both eyes and all related structures Neck Neck: Yes normal visual inspection Chest Chest palpation & inspection: normal inspection of the chest Resp Effort & Inspection: normal respiratory effort and able to speak in complete sentences Telehealth Telehealth Telehealth Platform: [employer] Location of provider rendering services: practice address Location of patient: address on file Patient Identification confirmed using: Name, : Yes Telehealth method: video Patient verbally consented to treatment: Yes Patient verbally consented to billing insurance company: Yes Patient informed of any privacy concerns related to visit: Yes Minutes spent on Phone/Video with Pt.: 15 Assessment & Plan Assessment & Plan (1) BPH w urinary obs/LUTS: Code(s): N40.1 - Benign prostatic hyperplasia with lower urinary tract symptoms; N13.8 - Other obstructive and reflux uropathy Category: Medical (2) Prostate cancer: Code(s): C61 - Malignant neoplasm of prostate Category: Medical (3) Recurrent UTI (urinary tract infection): Code(s): N39.0 - Urinary tract infection, site not specified Category: Medical Plan Six-month follow-up PSA Orders: Orders Prostate Specific Antigen 6 Months C61 - Malignant neoplasm of prostate Medications: Refilled sulfamethoxazole-trimethoprim 400-80 mg (Bactrim) 1 tab PO DAILY 90 days 90 tabs 1RF UTI suppression C61 - Malignant neoplasm of prostate Patient Instructions: Imaging studies, laboratory and physical exam results were discussed and reviewed in detail. No major barriers to patient understanding were identified. An opportunity to ask questions regarding the treatment plan was provided. All questions were answered. The patient expressed understanding and agreement with the above treatment plan. The patient is aware they should contact our office by phone for worsening of their current condition or the appearance of new urologic symptoms. Compliance is encouraged with any medications and followup testing that is ordered. It is a privilege to participate in the urologic care of your patient. If you have any questions or concerns regarding treatment for the above conditions, or other urologic issues, please do not hesitate to contact me. The office telephone contact is [phone]. This note is constructed using voice recognition software. While every effort has been made to ensure accuracy circuit breaker assembler errors may have been included. Yours sincerely, Dr Herrera Doshi MD, [facility] - Urology Providers of Expert, Compassionate Care for the Genitourinary System Coding Level of Care Code Tele Est Pt Level 3 (90851) Diagnoses BPH w urinary obs/LUTS N40.1; N13.8 Prostate cancer C61 Recurrent UTI (urinary tract infection) N39.0
== END 2024-02-20 10:38 | disposition home or self-care (01) ==
LOC: HO.HUSH 09:43
PROVIDERS: PCP Physician Assistant Surgical; Visit Provider Urology
DX: N40.1 Benign prostatic hyperplasia with lower urinary tract symptoms (principal); N13.8 Other obstructive and reflux uropathy; C61 Malignant neoplasm of prostate; N39.0 Urinary tract infection, site not specified
CPT/HCPCS: 99213

== ENCOUNTER → 2024-02-20 09:43 | Outpatient (BNVA) | payer MEDICARE, MEDICAID, SELFPAY | PROVIDERS: PCP Physician Assistant Surgical; Visit Provider Urology ==

== ENCOUNTER 2024-03-26 09:02 | Outpatient (REF) | payer MEDICARE, MEDICAID, SELFPAY ==
[2024-03-26] MEDS: gadobutroL 7.5 ML VIAL IVPUSH (11:02)
== END 2024-03-26 09:03 | disposition home or self-care (01) ==
LOC: HO.MRI 09:02
PROVIDERS: Visit Provider Urology
DX: C61 Malignant neoplasm of prostate (principal)
CPT/HCPCS: 72197; A9585

== ENCOUNTER → 2024-03-26 09:24 | Outpatient (BNV) | payer MEDICARE, MEDICAID, SELFPAY | PROVIDERS: Visit Provider Radiology Diagnostic Radiology | DX: C61 Malignant neoplasm of prostate (principal) | CPT/HCPCS: 72197 ==

== ENCOUNTER 2024-08-10 14:26 | Outpatient (REF) | payer MEDICARE, MEDICAID, SELFPAY ==
[2024-08-10 15:47] LABS: Prostate Specific Antigen 1.03 ng/mL (<0.05-4.0)
== END 2024-08-10 14:27 | disposition home or self-care (01) ==
LOC: HO.HMGCLDS 14:26
PROVIDERS: PCP Physician Assistant Surgical; Visit Provider Urology
DX: C61 Malignant neoplasm of prostate (principal); Z12.5 Encounter for screening for malignant neoplasm of prostate
CPT/HCPCS: 36415; 84153

== ENCOUNTER 2024-08-20 13:31 | Outpatient (AMB) | payer MEDICARE, MEDICAID, SELFPAY ==
--- NOTE | 2024-08-20 13:32 | A.OFFVIS_ITS ---
Intake Visit Reasons: 6m/PSA Intake Note: Patient is present for 6 mo follow up PSA 08/10/24 : 1.03 Urology Medication:TADALAFIL Antibiotic Allergy:NONE Blood Thinner:NONE Wrap Turner Required: No Accompanied by: Self / Same As Patient Allergies fentanyl (FENTANYL) Allergy (Severe, Verified 08/20/24 13:34) GETS VERY ANGRY morphine (MORPHINE) Allergy (Severe, Verified 08/20/24 13:34) GETS VERY ANGRY cefuroxime Allergy (Severe, Uncoded 02/20/24 09:50) Rash levofloxacin Allergy (Intermediate, Uncoded 02/20/24 09:50) Blister HPI Comments Details: Tony is a pleasant male.? He is a patient of Dr. Dorantes.? He is seen for the following urologic issue. - prostate cancer - recurring UTI Telemedicine Evaluation 15 min Consultation [employer] Reginald Video Follow-up for management of recurrent UTI and bladder emptying PSA well controlled - 1.1 Bladder remain stable with tadalafil Remain on daily low-dose Bactrim Six-month follow-up prostate MRI office Recurrent urosepsis E coli was Bactrim and Levaquin resistant Sensitive to medications Prior UTI was Providencia that was Macrobid resistant Given fosfomycin self starting On tadalafil for bladder emptying and stabilize Prostate cancer Diagnosed with Dr. Reyna 2017 Pathology diagnosis [place] 6 02/24 cores 5% Initial therapy active surveillance PSA - 08/03 0.78, 02/02 0.62, 08/04 0.5, 02/03 1.2, 11/05 0.8, 08/06 0.7, 03/09 1.1, 08/07 1.0 Recurring UTI Prior severe back injury Baseline tamsulosin Remains on suppression with Bactrim alone Upset stomach with Macrobid Urine culture - 01/03 Staphylococcus resistant to Bactrim sensitive to Macrobid and tetracycline - 02/02 providencia - sensitive to Bactrim resistant to Macrobid - 10/05 E coli Levaquin, Bactrim resistant - 01/05 E coli Levaquin and Bactrim resistant PFSH Medical History History of shingles Hx of spinal cord injury Prostate cancer Surgical History History of surgery Social History Household Members: Spouse Housing: Apartment Do you presently have visiting nurse or other home services: No Alcohol intake: former Patient Tobacco Use Status: Former Tobacco user Tobacco use type: Cigarette service: No Review of Systems Const All systems reviewed & are unremarkable except as noted in HPI and below Reports no additional complaints Resp Reports no additional complaints GI Reports no additional complaints Reports as per HPI Musc Reports no additional complaints Physical Exam Telemedicine evaluation Appropriate responses Regular breathing rate and rhythm HEENT Head: Yes normal to inspection Ears: hearing grossly normal bilaterally Eyes General: appearance normal, both eyes and all related structures Neck Neck: Yes normal visual inspection Chest Chest palpation & inspection: normal inspection of the chest Resp Effort & Inspection: normal respiratory effort and able to speak in complete sentences Telehealth Telehealth Telehealth Platform: [employer] Location of provider rendering services: practice address Location of patient: address on file Patient Identification confirmed using: Name, : Yes Telehealth method: video Patient verbally consented to treatment: Yes Patient verbally consented to billing insurance company: Yes Patient informed of any privacy concerns related to visit: Yes Minutes spent on Phone/Video with Pt.: 15 Assessment & Plan Assessment & Plan (1) Recurrent UTI (urinary tract infection): Code(s): N39.0 - Urinary tract infection, site not specified Category: Medical (2) Prostate cancer: Code(s): C61 - Malignant neoplasm of prostate Category: Medical Plan Six-month follow-up prostate MRI and PSA Orders: Orders MR Prostate wo/w con 6 Months C61 - Malignant neoplasm of prostate Prostate Specific Antigen 6 Months C61 - Malignant neoplasm of prostate Medications: Refilled tadalafil 5 mg PO DAILY 90 tabs 1RF sexual activity 90 days N13.8 - Other obstructive and reflux uropathy, N40.1 - Benign prostatic hyperplasia with lower urinary tract symptoms, N52.01 - Erectile dysfunction due to arterial insufficiency sulfamethoxazole-trimethoprim 400-80 mg (Bactrim) 1 tab PO DAILY 90 tabs 1RF UTI suppression 90 days C61 - Malignant neoplasm of prostate Patient Instructions: This note is constructed using voice recognition software. While every effort has been made to ensure accuracy police or patrol park officer errors may have been included. Imaging studies, laboratory and physical exam results were discussed and reviewed in detail. No major barriers to patient understanding were identified. An opportunity to ask questions regarding the treatment plan was provided. All questions were answered. The patient expressed understanding and agreement with the above treatment plan. The patient is aware they should contact our office by phone for worsening of their current condition or the appearance of new urologic symptoms. Compliance is encouraged with any medications and followup testing that is ordered. It is a privilege to participate in the urologic care of your patient. If you have any questions or concerns regarding treatment for the above conditions, or other urologic issues, please do not hesitate to contact me. The office telephone contact is [phone]. Sincerely, Dr Herrera Doshi MD, [facility] - Urology Compassionate Specialist Care for the Genitourinary System Coding Level of Care Code Tele Est Pt Level 3 (97042) Complex EM visit Add On G2211 Diagnoses Recurrent UTI (urinary tract infection) N39.0 Prostate cancer C61
--- OUTSIDE RECORDS SUMMARY | 2024-08-20 14:12 | XMS_ITS | Clinical Summary ---
Author Organization [facility] Address [address] [place] [address] Care Team Providers Care Office Services Coordinator Name Role Phone Nayla Jorge MD Primary Care Provider [phone] Allergies Active Allergy Reactions Criticality Noted Date Comments Cefuroxime Sodium 03/15/2023 Fentanyl 08/04/2016 Other reaction(s): super irritated , Other (See Comments), Other (See Comments) moodiness Levofloxacin Dermatitis,Rash 03/15/2023 Morphine Other 08/04/2016 Other reaction(s): Other (See Comments) moodiness Medications oxyCODONE (ROXICODONE) 10 mg immediate release tablet Take 1 tablet (10 mg total) by mouth every 6 (six) hours if needed for severe pain or moderate pain. Max Daily Amount: 40 mg 4 Active baclofen (LIORESAL) 20 mg tablet Take 5 tablets (100 mg total) by mouth 1 (one) time each day. 1 tab At 6am 1 1/2 tab at noon 1 at 6pm and 1 1/2 tab at midnight 4 Active ondansetron (ZOFRAN) 4 mg tablet Take 1 tablet (4 mg total) by mouth every 8 (eight) hours if needed for nausea. 4 Active fluticasone propionate (FLONASE) 50 mcg/actuation nasal spray Administer 1 spray into affected nostril(s) 1 (one) time each day. 4 Active CELECOXIB ORAL Take by mouth. Active tadalafiL (CIALIS) 5 mg tablet 5 MG ORALLY DAILY FOR SEXUAL ACTIVITY FOR 90 DAYS 4 Active naloxone (NARCAN) 4 mg/0.1 mL nasal spray 1 Act by Nasal route See Admin Instructions. [place] in 1 nostril, may repeat dose in alternate nostril every 2-3 minutes until responsive or EMS arrives . 4 Active omeprazole (PriLOSEC) [address] capsule TAKE 1 CAPSULE BY MOUTH TWICE A DAY FOR 90 DAYS 4 Active sulfamethoxazol e-trimethoprim (BACTRIM,SEPTRA ) 400-80 mg per tablet 4 Active calcium carbonate/vitam in D3 (CALCIUM 500 + D, D3, ORAL) Take by mouth. Activ e ascorbic acid/rutin/biof lav (VITAMIN [id number] ONOIDS ORAL) Take by mouth. Ac tive multivitamin tablet Take by mouth. Activ e Active Problems Problem Noted Date Diagnosed Date Closed fracture of thoracic vertebra ([facility] V24, [facility] V28) 02/01/2024 Overview (02/01/2024): Closed fracture of T7-T12 level with unspecified spinal cord injury (aka THORACIC) Chronic nausea 03/17/2023 Chronic pain syndrome 03/17/2023 Depression 03/17/2023 Esophageal dysmotility 03/17/2023 Frequent UTI 03/17/2023 Pathologic thoracic fracture 03/17/2023 Spinal cord injury at T7-T12 level with complete spinal cord lesion ([facility] V24, [facility] V28) 03/17/2023 Immunizations Name Administration Dates Next Due Influenza trivalent, 0.5mL (Fluad) 65yo and olde r 10/30/2019 Tdap Tetanus diptheria acell ular pertussis (Boostrix; Adacel) 7yo and older 09/27/2020 Surgical History Surgery Date Site/Laterality Comments BACK SURGERY PROCEDURE: HISTORICAL BACK SURGERY; COMMENT: nicholas kang placement/spinal fusion Medical History Medical History Date Comments Closed fracture of T7-T12 le mirna with unspecified spinal cord injury DX:Closed fracture of T 7-T12 level with unspecified spinal cord injury Family History Medical History Relation Name Comments Heart attack Brother 1 Lung cancer Father Diabetes Maternal Grandfather Diabetes Maternal Grandmother Lung cancer Mother Relation Name Status Comments Brother 1 Brother 2 Father Maternal Grandfather Maternal Grandmother Mother Social History Tobacco Use Types Packs/Day Years Used Date Smoking Tobacco: Former Cigarettes Q uit: 09/07/1994 Alcohol Use Standard Drinks/Week Comments No 0 (1 standard drink = 0.6 oz pur e alcohol) Sex and Gender Information Value Date Recorded Sex Assigned at Not on file Legal Sex Male 2:53 PM EST Gender Identity Not on file Sexual Orientation Not on file Obstetrics History Last Filed Vital Signs Vital Sign Reading Time Taken Comments Blood Pressure 146/83 11/10/2023 10:20 AM EDT Pulse 68 11/10/2023 10:20 AM EDT Temperature - - Respiratory Rate - - Oxygen Saturation - - Inhaled Oxygen Concentration - - Weight 66 kg (145 lb 6.4 oz) 11/10/2023 10:20 AM EDT Height 172.7 cm (5' 8 ) 11/10/2023 10:20 AM EDT Body Mass Index 22.11 11/10/2023 10:20 AM EDT Plan of Treatment Health Maintenance Due Date Last Done Comments Pneumococcal Vaccine: 50+ Years (1 of 1 - PCV) 04/16/2003 Zoster Vaccines (1 of 2) 04/16/2003 Depression Screening 09/12/2023 Falls Risk Assessment 09/12/2023 Hepatitis C Screening 09/12/2023 Social Influencers of Health Screening 09/12/2023 COVID-19 Vaccine (4 - 2023-2 5 season) 2023 01/20/2021, 05/20/2020, 04/29/2020 Influenza Vaccine (#1) 2024 10/30/2019 Cholesterol Screening (Lipid Panel) 12/13/2027 12/12/2022 RSV Immunization Adult Patients (1 - 1-dose 75+ series) 2028 DTaP,Tdap,and Td Vaccines (2 - Td or Tdap) 09/27/2030 09/27/2020 Colorectal Cancer Screening: Colonoscopy 07/29/2032 07/29/2022 Abdominal Aortic Aneurysm (AAA) Screen Completed 09/14/2023, 09/14/2023, 09/14/2023 HIB Vaccines Aged Out No longer eligi ble based on patient's age to complete this topic HPV Vaccines Aged Out No longer eligi ble based on patient's age to complete this topic Hepatitis A Vaccines Aged Out No long er eligible based on patient's age to complete this topic Hepatitis B Vaccines Aged Out No long er eligible based on patient's age to complete this topic IPV Vaccines Aged Out No longer eligi ble based on patient's age to complete this topic MMR Vaccines Aged Out No longer eligi ble based on patient's age to complete this topic Meningococcal ACWY Vaccine Aged Out N o longer eligible based on patient's age to complete this topic Meningococcal B Vaccine Aged Out No l onger eligible based on patient's age to complete this topic RSV Immunization Patients Under 20 months Aged Out No longer eligible b ased on patient's age to complete this topic Varicella Vaccines Aged Out No longer eligible based on patient's age to complete this topic Procedures Procedure Name Priority Date/Time Associated Diagnosis Comments US ABDOMINAL AORTA REAL TIME SCREEN STUDY AAA Routine 09/14/2023 8:08 AM EDT Encounter for screening for cardiovascular disorders LIPID PANEL Routine 12/12/2022 HM COLONOSCOPY Routine 07/29/2022 from Last 3 Months or Most Recently Relevant to Health Maintenance Results * US ABDOMINAL AORTA REAL TIME SCREEN STUDY AAA (09/14/2023 8:08 AM EDT) Anatomical Region Laterality Modality Ultrasound 08/23/2023 1:46 PM EDT Narrative 09/14/2023 9:53 AM EDT History: Screening for abdominal aortic aneurysm. Ultrasound of the abdominal aorta: There is mild intimal irregularity consistent with atherosclerosis. The abdominal aorta is otherwise normal in course, caliber and configuration. Proximal aortic AP diameter is 1.6 cm maximum. Mid aortic diameter is 1.7 cm, and distal aortic diameter is 1.3 cm. The common iliac arteries are normal in caliber as well. IMPRESSION: Atherosclerosis. Negative screening examination for abdominal aortic aneurysm. Procedure Note Porter Leyva MD - 11/29/2023 History: Screening for abdominal aortic aneurysm. Ultrasound of the abdominal aorta: There is mild intimal irregularityconsistent with atherosclerosis. The abdominal aorta is otherwise normal in course,caliber and configuration. Proximal aortic AP diameter is 1.6 cm maximum. Mid aortic diameter is 1.7cm, and distal aortic diameter is 1.3 cm. The common iliac arteries are normal in caliberas well. IMPRESSION: Atherosclerosis. Negative screening examination for abdominal aorticaneurysm. Nayla Jorge MD IMG US PROCEDURES Final Result * Lipid panel (12/12/2022) Pathologist [facility] LDL/HDL Ratio 0 Triglycerides 0 mg/dL Cholesterol 0 mg/dL HDL 0 mg/dL LDL Cholesterol 0 mg/dL Blood Venous blood specimen / Unknown Result [facility] Historical Provider LAB BLOOD ORDERABLES Kerry l Result * Colonoscopy (07/29/2022) Pathologist [facility] Colonoscopy Abstracted, No Interpretation Anatomical Region Laterality Modality Other Result [facility] Historical Provider HEALTH MAINTENANCE Final Result from Last 3 Months or Most Recently Relevant to Health Maintenance Care Teams Office Services Coordinator Relationship Specialty Start Date End Date Nayla Jorge MD PCP - General 01/13/23
--- OUTSIDE RECORDS SUMMARY | 2024-08-20 14:13 | XMS_ITS | Patient Health Record ---
Author Organization [facility] Address [address] [place] [id number] Care Team Providers Care Supervisor Keymodule Assembly Name Role Phone NII AGUILAR, FARA Primary Care Provider Martin Olsen MD, Zackary Unavailable Unavailable Allergies Allergen (clinical drug ingredient) Drug/Non Drug Allergy documented on EMR Reaction Allergy Type Onset Date Status morphine Morphine Unknown Drug Allergy Active Reason For Referral No Information Medications Medication SIG (Take, Route, Frequency, Duration) Notes Start Date End Date Status Polyethylene Glycol Active Celecoxib 200 MG 1 capsule with food Orally Twice a day Active Multi For Him Active Omeprazole 20 MG 1 tablet 30 minutes before morning meal Orally bid Active Methenamine Mandelate Active ZTlido Active Docusate Sodium 100 MG 1 capsule as need ed Orally Once a day; Duration: 30 day(s) Active Baclofen 20mg 4x daily Active Cholecalciferol 25 MCG (1000 UT) 1 capsule Orally Once a day; Duration: 30 day(s) Active oxyCODONE HCl 10mg Active Calcium 600 MG 1 tablet with meals Orally Twice a day; Duration: 30 day(s) Active Nitrofurantoin Macrocrystal 100 MG 1 capsule at bedtime with food or milk Orally Once a day Active Tamsulosin HCl Activ e rOPINIRole HCl Activ e Vit W-Eyvireeajxqfvwg-Ffxt Hip Active Fluticasone Propionate HFA Active Social History Tobacco Use: Social History Observation Description Date Details (start date - stop date) Former Smoker NA - NA Tobacco Use/Smoking Question Answer Notes Are you a former smoker How long has it been since you last smoked? > 10 years Problems Problem Type SNOMED Code ICD Code Onset Dates Problem Status W/U Status Risk Notes Problem Spondylosis without myelopathy or radiculopathy, cervical region (M47.812) Active confirmed Problem Lumbosacral spondylosis without myelopathy (40351467) Spondylosis without myelopathy or radiculopathy, lumbar region (M47.816) Active confirmed Plan Of Treatment No Information Insurance Providers Payer Name Payer Address Payer Phone Subscriber Number Group Number Insured Name Patient Relationship to Insured Coverage Start Date Coverage End Date [employer] Medicare PPO [address] [address] [place] [address] [id number] PPO MARY JAMES Self - patient is the insured Medical (General) History Medical History History ICD Code high cholesterol degenerative disc disease joint pain cancer Prostate arthritis Surgical History Surgery Date(Month/Year) right ankel and heel 1980 spinal reforcement with hardware 1994 acdf 2x cyst removal of the lumbar spinal
== END 2024-08-20 14:38 | disposition home or self-care (01) ==
LOC: HO.HUSH 13:31
PROVIDERS: PCP Physician Assistant Surgical; Visit Provider Urology
DX: N39.0 Urinary tract infection, site not specified (principal); C61 Malignant neoplasm of prostate
CPT/HCPCS: 99213; G2211

== ENCOUNTER 2024-09-18 15:24 | Outpatient (REF) | payer MEDICARE, MEDICAID, SELFPAY ==
--- OUTSIDE RECORDS SUMMARY | 2024-09-18 15:54 | XMS_ITS | Patient Health Record ---
Author Organization [facility] Address [address] [place] [phone] Care Team Providers Care Cook Helper Name Role Phone NII AGUILAR, FARA Primary [...] Activ e rOPINIRole HCl Activ e Vit S-Irfmdkaebwtszvb-Apgw Hip Active Fluticasone Propionate HFA Active Social [...] Problem Status W/U Status Risk Notes Problem Cervical spondylosis without myelopathy (449100686) Spondylosis without myelopathy or radiculopathy, cervical region (M47.812) Active confirmed Problem Lumbosacral spondylosis without myelopathy (07761447) Spondylosis without myelopathy or radiculopathy, lumbar region (M47.816) Active confirmed Plan Of Treatment No Information Insurance Providers Payer Name Payer Address Payer Phone Subscriber Number Group Number Insured Name Patient Relationship to Insured Coverage Start Date Coverage End Date [employer] Medicare PPO [address] [address] [place] [address] [phone] [id number] PPO MARY JAMES Self - patient is the insured Medical (General) History Medical History History ICD Code high cholesterol degenerative disc disease joint pain cancer Prostate arthritis Surgical History Surgery Date(Month/Year) right ankel and heel 1979 spinal reforcement with hardware 1994 acdf 2x cyst removal of the lumbar spinal
--- OUTSIDE RECORDS SUMMARY | 2024-09-18 15:54 | XMS_ITS | Clinical Summary ---
Author Organization [facility] Address [address] [place] [address] Care Team Providers Care Dining Room Server Name Role Phone Nayla Jorge MD Primary Care Provider [phone] Allergies Active Allergy Reactions Criticality Noted Date [...] Act by Nasal route See Admin Instructions. [place] in 1 nostril, may repeat dose in [...] mouth. Activ e ascorbic acid/rutin/biof lav (VITAMIN [id number] ONOIDS ORAL) Take by mouth. Ac tive multivitamin tablet Take by mouth. Activ e Active Problems Problem Noted Date Diagnosed Date Closed fracture of thoracic vertebra ([facility] V24, [facility] V28) 02/01/2024 Overview (02/01/2024): Closed fracture of T7-T12 level with unspecified spinal cord injury (aka THORACIC) Chronic nausea 03/17/2023 Chronic pain syndrome 03/17/2023 Depression 03/17/2023 Esophageal dysmotility 03/17/2023 Frequent UTI 03/17/2023 Pathologic thoracic fracture 03/17/2023 Spinal cord injury at T7-T12 level with complete spinal cord lesion ([facility] V24, [facility] V28) 03/17/2023 Immunizations Name Administration Dates Next [...] 04/16/2003 Zoster Vaccines (1 of 2) 04/16/2003 Falls Risk Assessment 09/12/2023 Hepatitis C Screening 09/12/2023 Social Influencers of Health Screening 09/12/2023 COVID-19 Vaccine (4 - 2023-2 5 season) 2023 01/20/2021, 05/20/2020, 04/29/2020 Depression Screening 02/14/2024 Influenza Vaccine (#1) 2024 10/30/2019 Cholesterol Screening [...] Final Result * Lipid panel (12/12/2022) Pathologist [facility] LDL/HDL Ratio 0 Triglycerides 0 mg/dL Cholesterol 0 mg/dL HDL 0 mg/dL LDL Cholesterol 0 mg/dL Blood Venous blood specimen / Unknown Result [facility] Historical Provider LAB BLOOD ORDERABLES Kerry l Result * Colonoscopy (07/29/2022) Pathologist [facility] Colonoscopy Abstracted, No Interpretation Anatomical Region Laterality Modality Other Result [facility] Historical Provider HEALTH MAINTENANCE Final Result from Last 3 Months or Most Recently Relevant to Health Maintenance Care Teams Dining Room Server Relationship Specialty Start Date End Date Nayla Jorge MD PCP - General 01/13/23
[2024-09-18 16:42] LABS: MANUAL DIFF FLAG NO
[2024-09-18 16:47] LABS: Hematocrit 39.3 % (42.0-52.0); Hemoglobin 13.7 g/dl (14.0-18.0); Imm Gran Abs Auto 0.02 X10*3/uL (0.00-0.03); Imm Gran Pct Auto 0.4 % (0.0-0.4); Lymphocytes Absolute Auto 1.6 X10*3/uL (1.2-4.9); Mean Corpuscular HGB Conc 34.9 g/dl (31.0-36.0); Mean Corpuscular Hemoglobin 31.7 pg (27.0-33.0); Mean Corpuscular Volume 91.0 fL (80.0-98.0); NRBC Abs Auto 0.000 X10*3/uL (0.0-0.012); NRBC Pct Auto 0.0 /100WBC (0.0-0.2); Platelet Count 235 X10*3/uL (160-400); Red Blood Count 4.32 X10*6/uL (4.60-5.80); White Blood Count 4.9 X10*3/uL (4.8-10.8)
[2024-09-18 18:00] LABS: Iron 110 mcg/dL (45-160); Percent Iron Saturation 42 % (15-50); Total Iron Binding Capacity 264 mcg/dL (228-428); Unsaturated Iron Binding 154 ug/dL
[2024-09-18 18:16] LABS: Vitamin B12 773 pg/mL (200-900)
[2024-09-19 18:53] LABS: Lyme Abs Screen <0.90 index
[2024-09-22 14:33] LABS: Testosterone, Free 58.2 pg/mL (30.0-135.0)
[2024-09-27 16:28] LABS: Serotonin - Serum 134 ng/mL (56-244)
== END 2024-09-18 15:25 | disposition home or self-care (01) ==
LOC: HO.HMGCLDS 15:24
PROVIDERS: Visit Provider Physician Assistant Surgical
DX: Z01.84 Encounter for antibody response examination (principal); R53.81 Other malaise; R53.83 Other fatigue
CPT/HCPCS: 36415; 82607; 83540; 84260; 84402; 84403; 84443; 85025; 86617; 86618

== ENCOUNTER 2024-11-07 14:21 | Outpatient (REF) | payer MEDICARE, MEDICAID, SELFPAY ==
--- NOTE | ~2024-11-07 | US_ITS ---
EXAMINATION: US CHEST CLINICAL INFORMATION: Left upper back mass COMPARISON: None available. TECHNIQUE: Grayscale and color Doppler was performed to evaluate the superficial soft tissues in the left upper back FINDINGS: Palpable abnormality correlates to a lesion measuring 20 x 8 x 19 mm. The lesion is in the superficial and deep subcutaneous soft tissues, just deep to the dermis. It is isoechoic to adjacent subcutaneous soft tissues. Color Doppler: there is no flow demonstrated. US/US chest IMPRESSION: There is ill-defined region in the area where the patient indicates a palpable mass. It is isoechoic to adjacent subcutaneous soft tissue tissue. This could represent a prominent lobulation of the subcutaneous soft tissues or lipoma, but other masses are not ruled out because ultrasound is not the ideal modality to evaluate musculoskeletal soft tissue masses. If clinically indicated, definitive evaluation with the MRI. Electronically signed by: Baudilio Jones MD 11/07/2024 03:21 PM EDT
--- OUTSIDE RECORDS SUMMARY | 2024-11-07 18:45 | XMS_ITS | Patient Health Record ---
Author Organization [facility] Address [address] [place] [phone] Care Team Providers Care Emergency Room Technician Name Role Phone NII AGUILAR, FARA Primary [...] Activ e rOPINIRole HCl Activ e Vit K-Elsrvpnqufbmopc-Vnpl Hip Active Fluticasone Propionate HFA Active Social [...] Risk Notes Problem Cervical spondylosis without myelopathy (131469113) Spondylosis without myelopathy or radiculopathy, cervical region (M47.812) Active confirmed Problem Lumbosacral spondylosis without myelopathy (77724705) Spondylosis without myelopathy or radiculopathy, lumbar region (M47.816) Active confirmed Plan Of Treatment No Information Insurance Providers Payer Name Payer Address Payer Phone Subscriber Number Group Number Insured Name Patient Relationship to Insured Coverage Start Date Coverage End Date [employer] Medicare PPO [address] [address] [place] [address] [id number] PPO MARY JAMES Self - patient is the insured Medical (General) History Medical History History ICD Code high cholesterol degenerative disc disease joint pain cancer Prostate arthritis Surgical History Surgery Date(Month/Year) right ankel and heel 1979 spinal reforcement with hardware 1994 acdf 2x cyst removal of the lumbar spinal
== END 2024-11-07 14:22 | disposition home or self-care (01) ==
LOC: HO.HMGCX 14:21
PROVIDERS: PCP Physician Assistant Surgical; Visit Provider Physician Assistant Surgical
DX: R22.2 Localized swelling, mass and lump, trunk (principal)
CPT/HCPCS: 76604

== ENCOUNTER → 2024-11-07 14:27 | Outpatient (BNV) | payer MEDICARE, MEDICAID, SELFPAY | PROVIDERS: PCP Physician Assistant Surgical; Visit Provider Radiology Diagnostic Radiology | DX: R22.2 Localized swelling, mass and lump, trunk (principal); L98.8 Other specified disorders of the skin and subcutaneous tissue | CPT/HCPCS: 76604 ==